=== PATIENT | female | born 1935 | race Caucasian/White ===

== ENCOUNTER 2019-04-05 11:40 | Inpatient (IN) | payer MEDICARE, OTHER ==
--- NOTE | 2019-04-04 21:45 | NUR ---
NURSE NOTES: Pt is sleeping on the bed and tolerated well with current BiPAP setting. Verified Pt's name, MR number, , unit number, blood type, and date with NAVIN Mojica. Educated Pt regarding side effect of blood transfusion but doesn't understand. Checked V/S BP: 150/101mmHg, HR: 115's, BT; 98.1F, SaO2 100% noted. Stared 2nd PRBC blood transfusion. Will continue to monitor any change of condition. Addendum: 04/06/19 at 0036 by ESA MAGDALENO RN RN Charting error; incorrect time and dated change to 04/05/19 @ 0673
[2019-04-05] VITALS (8 sets, daily range): BP systolic 93–150; BP diastolic 72–101
[~2019-04-05] VITALS: Ht 162.6 cm; Wt 81.6 kg
[2019-04-05 12:36] LABS: HEMATOCRIT 23.8 % (37.0-47.0); HEMOGLOBIN 7.1 G/DL (12.0-16.0); MEAN CORPUSCULAR VOLUME 74 FL (80-99); PLATELET COUNT 393 K/UL (150-450); RED BLOOD COUNT 3.24 M/UL (4.20-5.40); RED CELL DISTRIBUTION WIDTH 14.7 % (11.6-14.8); WHITE BLOOD COUNT 10.6 K/UL (4.8-10.8)
--- NOTE | 2019-04-05 12:36 | NUR ---
ED Nurse Note:pt. was BIBA from SNF with abnormal hemoglobin results, pt. is non-verbal, VSS, skin is dry and has bilateral hip redness also sore on left foot, blood and urine sent to labs given IV fluids
[2019-04-05 12:40] LABS: APPEARANCE,URINE SLIGHTLY CLOUDY; BILIRUBIN, URINE NEGATIVE (NEGATIVE); GLUCOSE, URINE (UA) NEGATIVE (NEGATIVE); KETONES,URINE NEGATIVE (NEGATIVE); LEUKOCYTE ESTERASE ,URINE 3+ (NEGATIVE); NITRITE,URINE NEGATIVE (NEGATIVE); PH,URINE 8 (4.5-8.0); PROTEIN,URINE 2+ (NEGATIVE); UROBILINOGEN,URINE 1 MG/DL (0.0-1.0)
[2019-04-05 12:42] LABS: COLOR,URINE YELLOW
[2019-04-05 12:45] LABS: ANION GAP 7 mmol/L (5-15); BLOOD UREA NITROGEN 29 mg/dL (7-18); CALCIUM 9.1 MG/DL (8.5-10.1); CARBON DIOXIDE 27 MMOL/L (21-32); CHLORIDE 108 MMOL/L (98-107); CREATININE 0.6 MG/DL (0.55-1.30); INR 1.1 (0.9-1.1); POTASSIUM 4.4 MMOL/L (3.5-5.1); SODIUM 142 MMOL/L (136-145)
[2019-04-05 12:50] LABS: ALANINE AMINOTRANSFERASE 52 U/L (12-78); ALBUMIN 2.3 G/DL (3.4-5.0); ALBUMIN/GLOBULIN RATIO 0.5 (1.0-2.7); ALKALINE PHOSPHATASE 85 U/L (46-116); ASPARTATE AMINO TRANSFERASE 48 U/L (15-37); BILIRUBIN,TOTAL 0.3 MG/DL (0.2-1.0)
[2019-04-05] MEDS ORDERED: Sodium Chloride 1,900 ML IVLG ONE (13:15)
[2019-04-05] MEDS ORDERED: cefTRIAXone 1 GM in NS 55 ML IVPB ONE (13:15)
--- NOTE | 2019-04-05 16:20 | NUR ---
ED Nurse Note:started blood transfusion ,pt. tolerating well
--- NOTE | 2019-04-05 16:29 | Emergency Room Report ---
History of Present Illness General Chief Complaint: Abnormal Labs Source: Patient, Medical Record Present Illness HPI 83-year-old female presents ED for evaluation. Brought in by EMS from senior care facility. Referred for abnormal labs. Hemoglobin 7.2. Patient nonverbal at baseline. No signs of distress. Unable to provide any additional history at this time. Tachycardic. Rhythm shows A. fib. No other aggravating relieving factors. No other associated symptoms Allergies: Coded Allergies: No Known Allergies (Unverified , 04/05/19) Patient History Past Medical History: GI bleed, dementia Past Surgical History: none Pertinent Family History: none Social History: Denies: smoking, alcohol use, drug use Now: No Immunizations: UTD Reviewed Nursing Documentation: PMH: Agreed; PSxH: Agreed Nursing Documentation-PMH Past Medical History: No History, Except For Hx Gastrointestinal Problems: Yes - GI hemorrhage, G-tube, dysphagia Hx Neurological Problems: Yes - Dementia Review of Systems All Other Systems: limited Physical Exam Vital Signs Date Time Temp Pulse Resp B/P (MAP) Pulse Ox O2 Delivery O2 Flow Rate FiO2 04/05/19 11:36 98.1 115 18 119/72 (88) 96 Nasal Cannula 2.0 Sp02 EP Interpretation: reviewed, normal General Appearance: other - nonverbal Head: normocephalic Eyes: bilateral eye normal inspection, bilateral eye PERRL ENT: normal ENT inspection Neck: normal inspection Respiratory: chest non-tender, lungs clear, normal breath sounds, speaking full sentences Cardiovascular #1: regular rate, rhythm, no edema Gastrointestinal: normal bowel sounds, non tender, soft, non-distended, no guarding, no rebound Rectal: black stool Genitourinary: no CVA tenderness Musculoskeletal: normal inspection Neurologic: other - nonverbal Psychiatric: other - nonverbal Skin: other - see nursing notes Lymphatic: normal inspection Medical Decision Making Diagnostic Impression: Primary Impression: Anemia Qualified Codes: D64.9 - Anemia, unspecified Additional Impressions: Afib Qualified Codes: I48.91 - Unspecified atrial fibrillation UTI (urinary tract infection) Qualified Codes: N39.0 - Urinary tract infection, site not specified Sepsis Qualified Codes: A41.9 - Sepsis, unspecified organism ER Course Hospital Course 83 yo F presents to ED with reported low hb. Differential diagnoses include: anemia requiring transfusion, microcytic anemia , macrocytic anemia, heavy blood loss Clinical course Patient placed on stretcher. After initial history and physical I ordered labs , EKG, CXR, IVFs Labs- hemoglobin/hematocrit 7.1/23.8. No leukocytosis. Hemoglobin/hematocrit stable, UA positive. Lactic 2.3 EKGA. fib with RVR CXR - no acute process Tachycardia resolved with IV fluids. Given antibiotics. Given 30 cc/kg fluid bolus. PRBCs ordered Diagnosis - anemia, UTI, sepsis, afib Admitted to telemetry in serious condition Labs Test 04/05/19 12:10 04/05/19 12:28 04/05/19 15:20 White Blood Count 10.6 K/UL (4.8-10.8) Red Blood Count 3.24 M/UL (4.20-5.40) Hemoglobin 7.1 G/DL (12.0-16.0) Hematocrit 23.8 % (37.0-47.0) Mean Corpuscular Volume 74 FL (80-99) Mean Corpuscular Hemoglobin 21.9 PG (27.0-31.0) Mean Corpuscular Hemoglobin Concent 29.8 G/DL (32.0-36.0) Red Cell Distribution Width 14.7 % (11.6-14.8) Platelet Count 393 K/UL (150-450) Mean Platelet Volume 6.6 FL (6.5-10.1) Neutrophils (%) (Auto) % (45.0-75.0) Lymphocytes (%) (Auto) % (20.0-45.0) Monocytes (%) (Auto) % (1.0-10.0) Eosinophils (%) (Auto) % (0.0-3.0) Basophils (%) (Auto) % (0.0-2.0) Differential Total Cells Counted 100 Neutrophils % (Manual) 78 % (45-75) Lymphocytes % (Manual) 13 % (20-45) Monocytes % (Manual) 8 % (1-10) Eosinophils % (Manual) 1 % (0-3) Basophils % (Manual) 0 % (0-2) Band Neutrophils 0 % (0-8) Platelet Estimate Adequate Platelet Morphology Normal Hypochromasia 2+ Anisocytosis 1+ Microcytosis 1+ Prothrombin Time 11.4 SEC (9.30-11.50) Prothromb Time International Ratio 1.1 (0.9-1.1) Activated Partial Thromboplast Time 20 SEC (23-33) Sodium Level 142 MMOL/L (136-145) Potassium Level 4.4 MMOL/L (3.5-5.1) Chloride Level 108 MMOL/L (98-107) Carbon Dioxide Level 27 MMOL/L (21-32) Anion Gap 7 mmol/L (5-15) Blood Urea Nitrogen 29 mg/dL (7-18) Creatinine 0.6 MG/DL (0.55-1.30) Estimat Glomerular Filtration Rate mL/min (>60) Glucose Level 127 MG/DL (74-106) Lactic Acid Level 2.30 mmol/L (0.4-2.0) Calcium Level 9.1 MG/DL (8.5-10.1) Total Bilirubin 0.3 MG/DL (0.2-1.0) Aspartate Amino Transf (AST/SGOT) 48 U/L (15-37) Alanine Aminotransferase (ALT/SGPT) 52 U/L (12-78) Alkaline Phosphatase 85 U/L (46-116) Total Protein 7.2 G/DL (6.4-8.2) Albumin 2.3 G/DL (3.4-5.0) Globulin 4.9 g/dL Albumin/Globulin Ratio 0.5 (1.0-2.7) Urine Color Yellow Urine Appearance Slightly cloudy Urine pH 8 (4.5-8.0) Urine Specific [place] 1.015 (1.005-1.035) Urine Protein 2+ (NEGATIVE) Urine Glucose (UA) Negative (NEGATIVE) Urine Ketones Negative (NEGATIVE) Urine Blood 5+ (NEGATIVE) Urine Nitrite Negative (NEGATIVE) Urine Bilirubin Negative (NEGATIVE) Urine Urobilinogen 1 MG/DL (0.0-1.0) Urine Leukocyte Esterase 3+ (NEGATIVE) Urine RBC 2-4 /HPF (0 - 2) Urine WBC 5-10 /HPF (0 - 2) Urine Squamous Epithelial Cells Moderate /LPF (NONE/OCC) Urine Amorphous Sediment Many /LPF (NONE) Urine Bacteria Few /HPF (NONE) EKG Diagnostic Results Rate: tachycardiac Rhythm: other - afib ST Segments: no acute changes ASA given to the pt in ED: No Rhythm Strip Diag. Results EP Interpretation: yes Rhythm: no PVC's, no ectopy Chest X-Ray Diagnostic Results Chest X-Ray Diagnostic Results : Chest X-Ray Ordered: Yes # of Views/Limited/Complete: 1 View Indication: Other EP Interpretation: Yes Interpretation: no consolidation, no effusion, no pneumothorax, other - cardiomegaly Impression: Other - cardiomegaly Electronically Signed by: Electronically signed by Eddie Friedman MD Last Vital Signs Date Time Temp Pulse Resp B/P (MAP) Pulse Ox O2 Delivery O2 Flow Rate FiO2 04/05/19 12:34 98.1 106 27 93/72 100 Nasal Cannula 2.0 Status: improved Disposition: ADMITTED INPATIENT Condition: Serious Referrals: Kennedy Martino MD (PCP) Eddie Friedman MD Apr 05, 2019 16:28
[2019-04-05] MEDS ORDERED: SYNTHROID75 MCG ORAL (16:49)
[2019-04-05] MEDS ORDERED: ACETAMINOP160 MG/5 M ORAL (16:49)
[2019-04-05] MEDS ORDERED: TIMOPTIC 0.25%1 EACH OP (16:49)
[2019-04-05] MEDS ORDERED: ATORVASTATIN CA20 MG ORAL (16:49)
[2019-04-05] MEDS ORDERED: MIRALAX17 G2 ORAL (16:49)
[2019-04-05] MEDS ORDERED: DIGOXIN250 MCG ORAL (16:49)
[2019-04-05] MEDS ORDERED: MILK OF MA400 MG/51 ORAL (16:49)
[2019-04-05] MEDS ORDERED: BRIMONIDINE 0.110 ML OP (16:49)
[2019-04-05] MEDS ORDERED: RANITIDINE15 MG/1 ML PO (16:49)
[2019-04-05] MEDS ORDERED: LOSARTAN POTAS100 MG ORAL (16:49)
--- NOTE | 2019-04-05 16:54 | NUR ---
ED Nurse Note:called respiratory to place pt. on bi-pap per MD order
[2019-04-05] MEDS ORDERED: Albuterol/Ipratropium 3ml neb HHN PRN (18:00)
--- NOTE | 2019-04-05 18:15 | NUR ---
ED Nurse Note:pt. was taken to SDU, report given to [place]na
--- NOTE | 2019-04-05 18:52 | NUR ---
RESPIRATORY NOTE: Received pt on bipap with current settings of 15/5 FIO2 28%. Pt currently on facial mask with foam tape around the face to prevent redness or breakdown. ABG pending. Bipap plugged into red outlet. Will continue to monitor pt's progress.
--- NOTE | 2019-04-05 18:57 | NUR ---
NURSE NOTES: received pt from ER, dx AFIB, hr 109, nonverbal, vital signs stable, no SOB, hg 7.1, 1ST unit of PRBC going now, skin warm and dry to touch.
--- NOTE | 2019-04-05 19:13 | NUR ---
HAND-OFF: Report given to RASTA HOLDEN.
--- NOTE | 2019-04-05 19:15 | NUR ---
NURSE NOTES: Given report from NAVIN Bentley. Pt admitted from ER. Received Pt is resting on the bed and obtunded. Able to response to pain stimuli. On Tele monitor with A-fib with HR: 115's. IV site intact and no sign of infiltration noted. On BiPAP setting with 12/5 FiO2 30% and SaO2 99-100% noted. No sign of pain by FLACC scale. Finished 1 RBC blood transfusion without adverse reaction. Checked V/S BP: 130/100, HR: 115, BT: 98.2F. Noted scratch friedman on Rt buttock area and rashes and scratch friedman on back area. Change position. Cleaned Pt and applied lotion and cream. Placed fall precaution. Will continue to care plan.
[2019-04-05] MEDS ORDERED: DIGOXIN250 MCG GT (19:51)
[2019-04-05] MEDS ORDERED: IPRAT-ALBUT 0.5-3 ML HHN (19:51)
[2019-04-05] MEDS ORDERED: LOSARTAN POTAS100 MG GT (19:51)
[2019-04-05] MEDS ORDERED: BRIMONIDINE TART5 ML RIGHT EYE (19:51)
[2019-04-05] MEDS ORDERED: ATORVASTATIN CA10 MG GT (19:51)
[2019-04-05] MEDS ORDERED: ACETAMINOP160 MG/5 M GT (19:51)
[2019-04-05] MEDS ORDERED: MILK OF MA400 MG/51 GT (19:52)
[2019-04-05] MEDS ORDERED: RANITIDINE15 MG/1 ML GT (19:52)
[2019-04-05] MEDS ORDERED: POLYETHYLENE GL17 GM ORAL (19:52)
[2019-04-05] MEDS ORDERED: TIMOPTIC 0.25%1 EACH RIGHT EYE (19:52)
[2019-04-05] MEDS ORDERED: SYNTHROID75 MCG GT (19:52)
--- NOTE | 2019-04-05 20:00 | NUR ---
NURSE NOTES: Left message Dr. Martino for admission order and awaiting call back.
--- NOTE | 2019-04-05 20:09 | Cardiology Progress Note ---
Assessment/Plan Assessment/Plan [id number] Objective Last 24 Hour Vital Signs Date Time Temp Pulse Resp B/P (MAP) Pulse Ox O2 Delivery O2 Flow Rate FiO2 04/05/19 18:53 98.2 109 20 144/86 (105) 98 04/05/19 18:51 114 27 98 Facial 28 04/05/19 18:35 97.4 101 26 132/82 100 Bi-pap 2.0 30 04/05/19 17:56 97.4 101 26 132/82 100 Bi-pap 30 04/05/19 17:20 105 29 100 Facial 28 04/05/19 17:19 105 29 100 Nasal Cannula 2.0 28 04/05/19 16:40 97.4 105 29 143/94 100 Nasal Cannula 2.0 04/05/19 12:34 98.1 106 27 93/72 100 Nasal Cannula 2.0 04/05/19 11:36 98.1 115 18 119/72 (88) 96 Nasal Cannula 2.0 Laboratory Tests Test 04/05/19 12:10 04/05/19 12:28 04/05/19 12:30 04/05/19 15:20 White Blood Count 10.6 K/UL (4.8-10.8) Red Blood Count 3.24 M/UL (4.20-5.40) L Hemoglobin 7.1 G/DL (12.0-16.0) L Hematocrit 23.8 % (37.0-47.0) L Mean Corpuscular Volume 74 FL (80-99) L Mean Corpuscular Hemoglobin 21.9 PG (27.0-31.0) L Mean Corpuscular Hemoglobin Concent 29.8 G/DL (32.0-36.0) L Red Cell Distribution Width 14.7 % (11.6-14.8) Platelet Count 393 K/UL (150-450) Mean Platelet Volume 6.6 FL (6.5-10.1) Neutrophils (%) (Auto) % (45.0-75.0) Lymphocytes (%) (Auto) % (20.0-45.0) Monocytes (%) (Auto) % (1.0-10.0) Eosinophils (%) (Auto) % (0.0-3.0) Basophils (%) (Auto) % (0.0-2.0) Differential Total Cells Counted 100 Neutrophils % (Manual) 78 % (45-75) H Lymphocytes % (Manual) 13 % (20-45) L Monocytes % (Manual) 8 % (1-10) Eosinophils % (Manual) 1 % (0-3) Basophils % (Manual) 0 % (0-2) Band Neutrophils 0 % (0-8) Platelet Estimate Adequate Platelet Morphology Normal Hypochromasia 2+ Anisocytosis 1+ Microcytosis 1+ Prothrombin Time 11.4 SEC (9.30-11.50) Prothromb Time International Ratio 1.1 (0.9-1.1) Activated Partial Thromboplast Time 20 SEC (23-33) L Sodium Level 142 MMOL/L (136-145) Potassium Level 4.4 MMOL/L (3.5-5.1) Chloride Level 108 MMOL/L (98-107) H Carbon Dioxide Level 27 MMOL/L (21-32) Anion Gap 7 mmol/L (5-15) Blood Urea Nitrogen 29 mg/dL (7-18) H Creatinine 0.6 MG/DL (0.55-1.30) Estimat Glomerular Filtration Rate mL/min (>60) Glucose Level 127 MG/DL (74-106) H Lactic Acid Level 2.30 mmol/L (0.4-2.0) H 2.20 mmol/L (0.66-2.22) Calcium Level 9.1 MG/DL (8.5-10.1) Total Bilirubin 0.3 MG/DL (0.2-1.0) Aspartate Amino Transf (AST/SGOT) 48 U/L (15-37) H Alanine Aminotransferase (ALT/SGPT) 52 U/L (12-78) Alkaline Phosphatase 85 U/L (46-116) Total Protein 7.2 G/DL (6.4-8.2) Albumin 2.3 G/DL (3.4-5.0) L Globulin 4.9 g/dL Albumin/Globulin Ratio 0.5 (1.0-2.7) L Urine Color Yellow Urine Appearance Slightly cloudy Urine pH 8 (4.5-8.0) Urine Specific [place] 1.015 (1.005-1.035) Urine Protein 2+ (NEGATIVE) H Urine Glucose (UA) Negative (NEGATIVE) Urine Ketones Negative (NEGATIVE) Urine Blood 5+ (NEGATIVE) H Urine Nitrite Negative (NEGATIVE) Urine Bilirubin Negative (NEGATIVE) Urine Urobilinogen 1 MG/DL (0.0-1.0) H Urine Leukocyte Esterase 3+ (NEGATIVE) H Urine RBC 2-4 /HPF (0 - 2) H Urine WBC 5-10 /HPF (0 - 2) H Urine Squamous Epithelial Cells Moderate /LPF (NONE/OCC) H Urine Amorphous Sediment Many /LPF (NONE) H Urine Bacteria Few /HPF (NONE) D-Dimer 3.86 mg/L FEU (0.00-0.49) H Lamont Felix MD Apr 05, 2019 20:09
--- NOTE | 2019-04-05 20:20 | NUR ---
NURSE NOTES: Dr. Felix visited and assessed PT. Will continue to monitor any change of condition.
[2019-04-05] MEDS ORDERED: Acetaminophen 650mg/20.3ml GT PRN (21:00)
[2019-04-05] MEDS: D5 1/2NS 1,000 ML IV SCH (21:45)
--- NOTE | 2019-04-05 21:45 | NUR ---
NURSE NOTES: Pt is sleeping on the bed and tolerated well with current BiPAP setting. Verified Pt's name, MR number, , unit number, blood type, and date with NAVIN Mojica. Educated Pt regarding side effect of blood transfusion but doesn't understand. Checked V/S BP: 150/101mmHg, HR: 115's, BT; 98.1F, SaO2 100% noted. Stared 2nd PRBC blood transfusion. Will continue to monitor any change of condition.
[2019-04-05] MEDS: dilTIAZem HCl 30mg tab GT SCH (21:49)
[2019-04-05] MEDS ORDERED: Zosyn 3.375gm q8h **Extended infusion IVPB SCH ×2 (22:00)
--- NOTE | 2019-04-05 22:00 | NUR ---
NURSE NOTES: On running with PRBC blood transfusion. Checked V/S; BP: 150/74, HR: 115, BT: 97.9F and SaO2 100%. No sign of adverse reaction of blood transfusion. Will continue to monitor any change of condition.
[2019-04-06] VITALS (7 sets, daily range): BP systolic 116–152; BP diastolic 65–86
--- NOTE | 2019-04-06 00:43 | NUR ---
NURSE NOTES: Finished blood transfusion without adverse reaction. Checked V/S BP: 119/73, HR: 100, BT: 97.8F, SaO2 100% noted.
[2019-04-06 04:54] LABS: BASOPHILS % (AUTO) 0.4 % (0.0-2.0); EOSINOPHILS % (AUTO) 0.7 % (0.0-3.0); HEMATOCRIT 29.6 % (37.0-47.0); HEMOGLOBIN 9.3 G/DL (12.0-16.0); LYMPHOCYTES % (AUTO) 11.9 % (20.0-45.0); MEAN CORPUSCULAR VOLUME 76 FL (80-99); MONOCYTES % (AUTO) 5.6 % (1.0-10.0); NEUTROPHILS % (AUTO) 81.4 % (45.0-75.0); PLATELET COUNT 398 K/UL (150-450); RED BLOOD COUNT 3.89 M/UL (4.20-5.40); WHITE BLOOD COUNT 10.7 K/UL (4.8-10.8)
[2019-04-06 05:17] LABS: ANION GAP 10 mmol/L (5-15); BLOOD UREA NITROGEN 24 mg/dL (7-18); CALCIUM 8.9 MG/DL (8.5-10.1); CARBON DIOXIDE 24 MMOL/L (21-32); CHLORIDE 111 MMOL/L (98-107); CREATININE 0.5 MG/DL (0.55-1.30); POTASSIUM 4.5 MMOL/L (3.5-5.1); SODIUM 145 MMOL/L (136-145)
[2019-04-06] MEDS: dilTIAZem HCl 30mg tab GT SCH ×3 (05:59→23:03)
[2019-04-06] MEDS: Zosyn 3.375gm q8h **Extended infusion IVPB SCH ×4 (06:00→14:39)
--- NOTE | 2019-04-06 07:15 | NUR ---
NURSE NOTES: RECEIVED PT WITH HOB ELEVATED 45 DEGREE ,OBTUNDED, NON-VERBAL. PT USING BIPAP TOLERATING WELL CURRENTS SETTINGS,SAT 100%.PT GTF ON HOLD PER M.D ORDERS,STRONG ODOR NOTED AND GREENISH AND BROWNISH DISCHARGE NOTED.CLEANSED WITH NS AND APPLIED DRY 4X4 GAUZE AND SECURED WITH PAPER TAPE. FULL BODY ASSESSMENT DONE.REPOSITIONED Q 2HRS TO PREVENT FURTHER SKIN BREAK DOWN.NO ACUTE DISTRESS NOTED AT THIS TIME. WILL CONT TO MONITOR.
--- NOTE | 2019-04-06 07:15 | NUR ---
RESPIRATORY NOTE: received pt on bipap with setting of 12/5 fio2 28%. no resp distress noted at this time. bilateral exp rhonch heard on auscultation. pt saturation WNL. foam tape in place with no visible redness around facial area. will cont to monitor
--- NOTE | 2019-04-06 07:40 | NUR ---
HAND-OFF: Report given to NAVIN Moran. Pt is resting on the bed and tolerated with current BIPAP setting. No sign of acute distress noted.
--- NOTE | 2019-04-06 08:34 | Consultation ---
Consult Note Assessment/Plan DICT # [id number] Lito Jc MD Apr 06, 2019 08:34
[2019-04-06] MEDS ORDERED: Heparin 5000 units/ml inj SUBQ SCH (09:00)
[2019-04-06] MEDS: Brimonidine 0.2% Opth Sol RIGHT EYE SCH ×3 (09:56→18:21)
[2019-04-06] MEDS: Timoptic 0.25% Op Soln 2.5ml RIGHT EYE SCH ×2 (09:56→18:21)
--- NOTE | 2019-04-06 10:22 | Cardiology Progress Note ---
Assessment/Plan Assessment/Plan afib perm anemia uti contracture dementia cardizem for hr control seem fien is not on bipap now trop neg ekg not changed s/p prbc tx not on anticoagualtion at this time stool ob pulm fu Subjective ROS Limited/Unobtainable: Yes Objective Last 24 Hour Vital Signs Date Time Temp Pulse Resp B/P (MAP) Pulse Ox O2 Delivery O2 Flow Rate FiO2 04/06/19 08:43 2 Nasal Cannula 2.0 28 04/06/19 08:00 97.9 85 25 129/77 (94) 100 04/06/19 08:00 Bi-pap 04/06/19 07:13 80 26 100 Facial 28 04/06/19 05:59 95 131/73 04/06/19 04:58 10 28 100 Facial 28 04/06/19 04:00 Bi-pap 04/06/19 04:00 97.9 102 18 119/65 (83) 100 04/06/19 04:00 30 04/06/19 04:00 101 04/06/19 02:39 106 24 100 Facial 28 04/06/19 00:43 97.8 100 20 119/73 (88) 100 04/06/19 00:38 105 26 100 Facial 28 04/06/19 00:00 Bi-pap 04/06/19 00:00 107 04/06/19 00:00 30 04/06/19 00:00 98.2 102 18 152/86 (108) 100 04/05/19 22:43 107 31 100 Facial 28 04/05/19 22:00 97.9 115 20 150/74 (99) 100 04/05/19 21:49 115 152/101 04/05/19 21:45 98.1 115 20 150/101 (117) 100 04/05/19 21:30 28 04/05/19 20:30 109 19 100 Facial 28 04/05/19 20:00 Bi-pap 04/05/19 20:00 30 04/05/19 20:00 98.2 117 20 141/95 (110) 100 04/05/19 20:00 Bi-pap 04/05/19 20:00 115 04/05/19 19:15 98.2 115 20 130/100 (110) 100 04/05/19 18:53 98.2 109 20 144/86 (105) 98 04/05/19 18:51 114 27 98 Facial 28 04/05/19 18:35 97.4 101 26 132/82 100 Bi-pap 2.0 30 04/05/19 17:56 97.4 101 26 132/82 100 Bi-pap 30 04/05/19 17:20 105 29 100 Facial 28 04/05/19 17:19 105 29 100 Nasal Cannula 2.0 28 04/05/19 16:40 97.4 105 29 143/94 100 Nasal Cannula 2.0 04/05/19 12:34 98.1 106 27 93/72 100 Nasal Cannula 2.0 04/05/19 11:36 98.1 115 18 119/72 (88) 96 Nasal Cannula 2.0 General Appearance: no apparent distress Cardiovascular: irregularly irregular Respiratory/Chest: lungs clear Abdomen: normal bowel sounds, non tender, soft Extremities: no swelling, other - sever contractures Intake and Output 04/05/19 04/06/19 19:00 07:00 Intake Total 973.5 ml Output Total 1 ml Balance 972.5 ml Intake IV Total 423.5 ml Blood Product 550 ml Output Urine Total 1 ml # Voids 1 Laboratory Tests Test 04/05/19 12:10 04/05/19 12:28 04/05/19 12:30 04/05/19 15:20 White Blood Count 10.6 K/UL (4.8-10.8) Red Blood Count 3.24 M/UL (4.20-5.40) L Hemoglobin 7.1 G/DL (12.0-16.0) L Hematocrit 23.8 % (37.0-47.0) L Mean Corpuscular Volume 74 FL (80-99) L Mean Corpuscular Hemoglobin 21.9 PG (27.0-31.0) L Mean Corpuscular Hemoglobin Concent 29.8 G/DL (32.0-36.0) L Red Cell Distribution Width 14.7 % (11.6-14.8) Platelet Count 393 K/UL (150-450) Mean Platelet Volume 6.6 FL (6.5-10.1) Neutrophils (%) (Auto) % (45.0-75.0) Lymphocytes (%) (Auto) % (20.0-45.0) Monocytes (%) (Auto) % (1.0-10.0) Eosinophils (%) (Auto) % (0.0-3.0) Basophils (%) (Auto) % (0.0-2.0) Differential Total Cells Counted 100 Neutrophils % (Manual) 78 % (45-75) H Lymphocytes % (Manual) 13 % (20-45) L Monocytes % (Manual) 8 % (1-10) Eosinophils % (Manual) 1 % (0-3) Basophils % (Manual) 0 % (0-2) Band Neutrophils 0 % (0-8) Platelet Estimate Adequate Platelet Morphology Normal Hypochromasia 2+ Anisocytosis 1+ Microcytosis 1+ Prothrombin Time 11.4 SEC (9.30-11.50) Prothromb Time International Ratio 1.1 (0.9-1.1) Activated Partial Thromboplast Time 20 SEC (23-33) L Sodium Level 142 MMOL/L (136-145) Potassium Level 4.4 MMOL/L (3.5-5.1) Chloride Level 108 MMOL/L (98-107) H Carbon Dioxide Level 27 MMOL/L (21-32) Anion Gap 7 mmol/L (5-15) Blood Urea Nitrogen 29 mg/dL (7-18) H Creatinine 0.6 MG/DL (0.55-1.30) Estimat Glomerular Filtration Rate mL/min (>60) Glucose Level 127 MG/DL (74-106) H Lactic Acid Level 2.30 mmol/L (0.4-2.0) H 2.20 mmol/L (0.66-2.22) Calcium Level 9.1 MG/DL (8.5-10.1) Total Bilirubin 0.3 MG/DL (0.2-1.0) Aspartate Amino Transf (AST/SGOT) 48 U/L (15-37) H Alanine Aminotransferase (ALT/SGPT) 52 U/L (12-78) Alkaline Phosphatase 85 U/L (46-116) Total Protein 7.2 G/DL (6.4-8.2) Albumin 2.3 G/DL (3.4-5.0) L Globulin 4.9 g/dL Albumin/Globulin Ratio 0.5 (1.0-2.7) L Urine Color Yellow Urine Appearance Slightly cloudy Urine pH 8 (4.5-8.0) Urine Specific [place] 1.015 (1.005-1.035) Urine Protein 2+ (NEGATIVE) H Urine Glucose (UA) Negative (NEGATIVE) Urine Ketones Negative (NEGATIVE) Urine Blood 5+ (NEGATIVE) H Urine Nitrite Negative (NEGATIVE) Urine Bilirubin Negative (NEGATIVE) Urine Urobilinogen 1 MG/DL (0.0-1.0) H Urine Leukocyte Esterase 3+ (NEGATIVE) H Urine RBC 2-4 /HPF (0 - 2) H Urine WBC 5-10 /HPF (0 - 2) H Urine Squamous Epithelial Cells Moderate /LPF (NONE/OCC) H Urine Amorphous Sediment Many /LPF (NONE) H Urine Bacteria Few /HPF (NONE) D-Dimer 3.86 mg/L FEU (0.00-0.49) H Test 04/05/19 19:05 04/06/19 04:00 Arterial Blood pH 7.475 (7.350-7.450) Arterial Blood Partial Pressure CO2 33.3 mmHg (35.0-45.0) L Arterial Blood Partial Pressure O2 106.3 mmHg (75.0-100.0) H Arterial Blood HCO3 24.0 mmol/L (22.0-26.0) Arterial Blood Oxygen Saturation 97.6 % (95-100) Arterial Blood Base Excess 0.6 (-2-2) Mumtaz Test Positive White Blood Count 10.7 K/UL (4.8-10.8) Red Blood Count 3.89 M/UL (4.20-5.40) L Hemoglobin 9.3 G/DL (12.0-16.0) #L Hematocrit 29.6 % (37.0-47.0) L Mean Corpuscular Volume 76 FL (80-99) L Mean Corpuscular Hemoglobin 24.0 PG (27.0-31.0) L Mean Corpuscular Hemoglobin Concent 31.6 G/DL (32.0-36.0) L Red Cell Distribution Width 15.0 % (11.6-14.8) H Platelet Count 398 K/UL (150-450) Mean Platelet Volume 7.4 FL (6.5-10.1) Neutrophils (%) (Auto) 81.4 % (45.0-75.0) H Lymphocytes (%) (Auto) 11.9 % (20.0-45.0) L Monocytes (%) (Auto) 5.6 % (1.0-10.0) Eosinophils (%) (Auto) 0.7 % (0.0-3.0) Basophils (%) (Auto) 0.4 % (0.0-2.0) Sodium Level 145 MMOL/L (136-145) Potassium Level 4.5 MMOL/L (3.5-5.1) Chloride Level 111 MMOL/L (98-107) H Carbon Dioxide Level 24 MMOL/L (21-32) Anion Gap 10 mmol/L (5-15) Blood Urea Nitrogen 24 mg/dL (7-18) H Creatinine 0.5 MG/DL (0.55-1.30) L Estimat Glomerular Filtration Rate mL/min (>60) Glucose Level 108 MG/DL (74-106) H Calcium Level 8.9 MG/DL (8.5-10.1) Troponin I 0.000 ng/mL (0.000-0.056) Digoxin Level 0.8 NG/ML (0.9-2.0) L Lamont Felix MD Apr 06, 2019 10:22
--- NOTE | 2019-04-06 10:44 | Diagnostic Imaging Report ---
Indication: Dyspnea Comparison: None A single view chest radiograph was obtained. Findings: No definite infiltrate or pulmonary vascular congestion identified. The heart is enlarged. The aorta is mildly enlarged consistent with atherosclerotic vascular disease. 2 level thoracic vertebroplasty/kyphoplasty has been performed in the midthoracic and lower thoracic levels. The bones are osteopenic. Impression: No acute disease
--- NOTE | 2019-04-06 10:58 | NUR ---
CASE MANAGEMENT: INITIAL REVIEW 83 YO F NANNETTE FROM [facility] CC: LOW HGB PMHx: DEMENTIA. GTUBE. SI:RAPID A FIB. ANEMIA. T 98.1 HR 115 RR 18 B/P 119/72 SATS 96% ON 2L/NC HGB 7.1 HCT 23.8 CL 108 BUN 29 GLU 127 AST 48 ABGs PH 7.475 PCO2 33.3 PO2 106.3 IS: NS BOLUS X2 CEFTRIAXONE IV X1 CXR (-) PATIENT ADMITTED TO SDU 04/05/2019 @ 1422 DCP: PATIENT TO BE DISCHARGED TO SNF ONCE MEDICALLY CLEARED PLAN OF CARE: TRANSFUSE 2 UNITS CARDIO EVAL Addendum: 04/06/19 at 1756 by Lorelei Noble CM INTERQUAL MET
--- NOTE | 2019-04-06 11:10 | Cardiology Report ---
APPROVED REPORT EXAM: Two-dimensional and M-mode echocardiogram with Doppler and color Doppler. M-Mode DIMENSIONS IVSd1.0 (0.7-1.1cm)Left Atrium (MM)5.5 (1.6-4.0cm) LVDd4.6 (3.5-5.6cm)Aortic Root3.2 (2.0-3.7cm) PWd1.0 (0.7-1.1cm)Aortic Cusp Exc.1.8 (1.5-2.0cm) IVSs1.5 cm LVDs3.1 (2.5-4.0cm) PWs1.5 cm Technically difficult study due to poor acoustical windows . Normal left ventricular chamber size, systolic function and wall motion to extent visualized. Left ventricular ejection fraction estimated to be 55-60%. No evidence of left ventricular hypertrophy. No pericardial effusion. Moderate bi-atrial enlargement. Right ventriuclar size at upper limits of normal. Aortic valve calcification with normal cusp excursion . Mildly thickened mitral valve leaflets with normal excursion. Mild mitral annulus and aortic root calcification. Pulmonic valve not well visualized. IVC dilated at 2.5 cm with slightly physiologic collapse suggestive of increased RA pressure. A color flow and spectral Doppler study was performed and revealed: Trace aortic insufficiency . Mitral inflow non diagnostic due to presence of atrial fibrillation Mild to moderate mitral regurgitation. Moderate tricuspid regurgitation. Tricuspid systolic velocities suggests peak right ventricular systolic pressure of 58mmHg,consistent with moderate pulmonary HTN.
--- NOTE | 2019-04-06 11:18 | Cardiology Report ---
APPROVED REPORT EKG Measurement Heart [id number] Atrial fibrillation with rapid ventricular response Anterior infarct, age undetermined Abnormal ECG
[2019-04-06] MEDS: D5 1/2NS 1,000 ML IV SCH (12:32)
--- NOTE | 2019-04-06 13:55 | Consultation ---
Consult Note Assessment/Plan dictated [id number] Kennedy Martino MD Apr 06, 2019 13:55
--- NOTE | 2019-04-06 13:57 | General Progress Note ---
Assessment/Plan Problem List: (1) Anemia ICD Codes: D64.9 - Anemia, unspecified SNOMED: 153245001 Qualifiers: Qualified Codes: D64.9 - Anemia, unspecified (2) Afib ICD Codes: I48.91 - Unspecified atrial fibrillation SNOMED: 56267694 Qualifiers: Qualified Codes: I48.91 - Unspecified atrial fibrillation (3) Sepsis ICD Codes: A41.9 - Sepsis, unspecified organism SNOMED: 51437039 Qualifiers: Qualified Codes: A41.9 - Sepsis, unspecified organism (4) UTI (urinary tract infection) ICD Codes: N39.0 - Urinary tract infection, site not specified SNOMED: 05166001 Qualifiers: Qualified Codes: N39.0 - Urinary tract infection, site not specified Assessment/Plan: abxs rate control Discussed with RN and family Follow labs wound care Subjective Allergies: Coded Allergies: No Known Allergies (Unverified , 04/05/19) Subjective In NAD Objective Last 24 Hour Vital Signs Date Time Temp Pulse Resp B/P (MAP) Pulse Ox O2 Delivery O2 Flow Rate FiO2 04/06/19 13:02 89 04/06/19 12:00 2.0 04/06/19 08:43 2 Nasal Cannula 2.0 28 04/06/19 08:00 83 04/06/19 08:00 97.9 85 25 129/77 (94) 100 04/06/19 08:00 Bi-pap 04/06/19 08:00 30 04/06/19 07:13 80 26 100 Facial 28 04/06/19 05:59 95 131/73 04/06/19 04:58 10 28 100 Facial 28 04/06/19 04:00 Bi-pap 04/06/19 04:00 97.9 102 18 119/65 (83) 100 04/06/19 04:00 30 04/06/19 04:00 101 04/06/19 02:39 106 24 100 Facial 28 04/06/19 00:43 97.8 100 20 119/73 (88) 100 04/06/19 00:38 105 26 100 Facial 28 04/06/19 00:00 Bi-pap 04/06/19 00:00 107 04/06/19 00:00 30 04/06/19 00:00 98.2 102 18 152/86 (108) 100 04/05/19 22:43 107 31 100 Facial 28 04/05/19 22:00 97.9 115 20 150/74 (99) 100 04/05/19 21:49 115 152/101 04/05/19 21:45 98.1 115 20 150/101 (117) 100 04/05/19 21:30 28 04/05/19 20:30 109 19 100 Facial 28 04/05/19 20:00 Bi-pap 04/05/19 20:00 30 04/05/19 20:00 98.2 117 20 141/95 (110) 100 04/05/19 20:00 Bi-pap 04/05/19 20:00 115 04/05/19 19:15 98.2 115 20 130/100 (110) 100 04/05/19 18:53 98.2 109 20 144/86 (105) 98 04/05/19 18:51 114 27 98 Facial 28 04/05/19 18:35 97.4 101 26 132/82 100 Bi-pap 2.0 30 04/05/19 17:56 97.4 101 132/82 100 Bi-pap 30 04/05/19 17:20 105 29 100 Facial 28 04/05/19 17:19 105 29 100 Nasal Cannula 2.0 28 04/05/19 16:40 97.4 105 29 143/94 100 Nasal Cannula 2.0 Intake and Output 04/05/19 04/06/19 19:00 07:00 Intake Total 973.5 ml Output Total 1 ml Balance 972.5 ml Intake IV Total 423.5 ml Blood Product 550 ml Output Urine Total 1 ml # Voids 1 Laboratory Tests 04/05/19 15:20: Lactic Acid Level 2.20 04/05/19 19:05: Arterial Blood pH 7.475H, Arterial Blood Partial Pressure CO2 33.3L, Arterial Blood Partial Pressure O2 106.3H, Arterial Blood HCO3 24.0, Arterial Blood Oxygen Saturation 97.6, Arterial Blood Base Excess 0.6, Mumtaz Test Positive 04/06/19 04:00: White Blood Count 10.7, Red Blood Count 3.89L, Hemoglobin 9.3#L, Hematocrit 29.6L, Mean Corpuscular Volume 76L, Mean Corpuscular Hemoglobin 24.0L, Mean Corpuscular Hemoglobin Concent 31.6L, Red Cell Distribution Width 15.0H, Platelet Count 398, Mean Platelet Volume 7.4, Neutrophils (%) (Auto) 81.4H, Lymphocytes (%) (Auto) 11.9L, Monocytes (%) (Auto) 5.6, Eosinophils (%) (Auto) 0.7, Basophils (%) (Auto) 0.4, Sodium Level 145, Potassium Level 4.5, Chloride Level 111H, Carbon Dioxide Level 24, Anion Gap 10, Blood Urea Nitrogen 24H, Creatinine 0.5L, Estimat Glomerular Filtration Rate , Glucose Level 108H, Calcium Level 8.9, Troponin I 0.000, Digoxin Level 0.8L Height (Feet): 5 Height (Inches): 4.00 Weight (Pounds): 158 Cardiovascular: normal rate, irregularly irregular Respiratory/Chest: lungs clear Edema: no edema noted Generalized Kennedy Martino MD Apr 06, 2019 13:57
--- NOTE | 2019-04-06 14:48 | NUR ---
NURSE NOTES:WOUND CARE NOTES:Pt presented on admission with contractures and multiple pressure injuries. Non-blanchabe erythema with fluctuance L heel and plantar aspect of L heel. Non-blanching erythema with fluctuance R heel. Non-blanching erythema without fluctuance or induration Lateral R malleolus. Non-blanching erythema without induration or fluctuance Lateral L malleolus. Non-blanching erythema without fluctuance or induration distal/lateral L foot. Necrotic wound medial/lateral L foot . Base of wound is fluctuant, oozing small amt purulent exudate. Borders and periwound are erythematous. Non-blanching erythema without induration or fluctuance Sacrum. No other skin concerns noted. Tx.Plan: Apply Moisture Barrier paste to sacrum. Cover with Optifoam drsg. Change every 3 days and prn. Apply Cavilon Skin Barrier to R lateral malleolus ,R heel and R hallux. Cover each site with Optifoam drsg. Change every 7 days and prn. Apply Cavilon Skin Barrier to L lateral malleolus , L heel ,L hallux .Cover each site with Optifoam drsg. Change every 7 days and prn. Clean Wound lateral/medial L foot with saline. Apply Therahoney. Cover with Optifoam drsg. Change Daily and prn. Reposition at least every 2hours or as tolerated. APM/NIKOLAI mattress overlay. Off-load heels with pillow.
--- NOTE | 2019-04-06 15:23 | NUR ---
RD ASSESSMENT & RECOMMENDATIONS SEE CARE ACTIVITY FOR COMPLETE ASSESSMENT DAILY ESTIMATED NEEDS: Needs based on Pulmonary, wound/ 69kg 25-30 kcals/kg 7698-6471 total kcals 1.25-1.5 g protein/kg 86-103 g total protein 25-30 mL/kg 6939-1428 total fluid mLs NUTRITION DIAGNOSIS: * Swallowing difficulty R/T dysphagia as evidenced by PEG dep, NPO at this time * Increased kcal/prot needs R/T wound healing as evidenced by pt admitted w/ lt foot wound, pending eval. CURRENT TF:NPO ENTERAL NUTRITION RECOMMENDATIONS: Osmolite 1.5 @ 55ml/hr x 24 hrs + Prosource 1pkt QD to provide 1320ml, 1980kcal, 83g + 11g prot, 1005ml free water * As medically appropriate, initiate TF * Rec to continue Osmolite 1.5 (TF @ SNF) * Initiate Osmoltie 1.5 @ 35ml/hr x 6 hrs, advance 10ml q 4-6 hrs as tolerated to goal rate. * Add Prosource 1pkt daily to meet protein needs * HOB over 30 degrees/ water flush per MD ADDITIONAL RECOMMENDATIONS: * Calibrated bedscale wt for accurate CBW (per SNF record, [id number] on 03/15/19, ht=68") * Resume TF as medically appropriate * Wound healing: Add Vit C 250mg QD + Toni 1pkt BID * Monitor lytes, replete as needed
[2019-04-06] MEDS ORDERED: Isovue-370 150ml vial INJ PRN (15:30)
--- NOTE | 2019-04-06 16:56 | Consultation ---
DATE OF CONSULTATION: 04/06/2019 PULMONARY CONSULTATION CONSULTING PHYSICIAN: Lito Jc M.D. REFERRING PHYSICIAN: Kennedy Martino M.D. REASON FOR CONSULTATION: Respiratory failure. HISTORY OF PRESENT ILLNESS: The patient is an 83-year-old female with a history of dementia, nonverbal at baseline, recent admission to [facility] for GI bleed, paroxysmal atrial fibrillation, not on anticoagulation, hypothyroidism, hypertension, hyperlipidemia who presented to the emergency department yesterday from a senior living facility with a hemoglobin of 7.2. She was recently at [facility] for the same. The patient was in respiratory distress in the ER, went into atrial fibrillation with RVR, and was started on BiPAP by the ER attending. Tachycardia and rapid ventricular response resolved with IV fluids. The patient was started on broad-spectrum antimicrobials. Chest x-ray is not loaded on PACS, but per the ER doctor's note was unrevealing. The patient is now in a rate controlled atrial fibrillation on BiPAP. No leukocytosis. Hemoglobin responded well to transfusion. ABG 7.475, 33, 106, 24, 97. D-dimer 3.86. Lactic acidosis has resolved. Urinalysis is significant for UTI and cultures are pending. No history is obtainable from the patient. PAST MEDICAL HISTORY: 1. Dementia. 2. Dysphagia, status post G-tube. 3. Atrial fibrillation. 4. Hypertension. 5. Hyperlipidemia. 6. History of anemia and GI bleed. ALLERGIES: No known drug allergies. MEDICATIONS: Prior to admission medications reviewed. Current medications reviewed. SOCIAL HISTORY: [facility] resident, otherwise unknown. FAMILY HISTORY: Noncontributory. REVIEW OF SYSTEMS: Unobtainable. PHYSICAL EXAMINATION: VITAL SIGNS: Temperature 97.9, pulse 80, blood pressure 131/73, respiratory rate 26, saturating 100% on BiPAP. GENERAL: Elderly nonverbal demented patient. Follows simple commands like eye tracking. HEENT: Normocephalic, atraumatic. BiPAP is on. NECK: Supple without lymphadenopathy. CHEST: Scattered coarse rhonchi. No rales. HEART: Irregularly irregular. ABDOMEN: Soft, nontender, nondistended. EXTREMITIES: No cyanosis, clubbing, edema. LABORATORY DATA: White count 10.7, hemoglobin 9.3, platelet count 398. ABG 7.475/33/106/24/97. Sodium 145, potassium 4.5, chloride 111, bicarb 24, BUN 24, creatinine 0.5, glucose 108, calcium 8.9. LFTs normal. Lactic acid 2.2. Troponin 0.000. INR 1.1. D-dimer 3.86. Urinalysis, 3+ leukocyte esterase. Digoxin level 0.8. Chest x-ray per ER doctor is negative. ASSESSMENT: The patient is an 83-year-old female, residential patient with dementia, nonverbal at baseline, dysphagia status post G-tube, history of GI bleed, hypertension, hyperlipidemia, atrial fibrillation brought in for acute on chronic anemia and placed on BiPAP for respiratory failure and concern for possible sepsis. PROBLEM LIST: 1. Acute hypoxemic respiratory failure, on BiPAP. 2. Systemic inflammatory response syndrome. 3. Atrial fibrillation initially with RVR, now rate controlled. 4. Acute on chronic anemia. 5. History of GI bleed. 6. Dysphagia, status post G-tube. 7. Dementia. 8. Hypertension. 9. Hyperlipidemia. 10. Hypothyroidism. TREATMENT PLAN: 1. We will discontinue BiPAP now and monitor gas exchange. 2. We will keep BiPAP on p.r.n. and at bedtime. 3. Duplex is currently pending, if negative we will check a stat CT angio of the chest. 4. Optimize pulmonary hygiene/mobilize as tolerated. 5. PRN DuoNebs. 6. Continue antibiotics for now, the patient is on Zosyn (day #2), low threshold to taper unless any sign of an infectious process. 7. Follow up Cardiology recommendations. 8. Monitor volumes and renal function, continue maintenance IV fluid. 9. Hold tube feed until the patient's respiratory status is stable. 10. DVT prophylaxis, heparin subcutaneous. 11. Monitor hemoglobin and hematocrit, transfuse as needed. 12. The patient is DNAR. Dr. Martino, thank you for allowing me to assist in the care of your patient. If I maybe of any assistance in the future, please do not hesitate to ask. Lito Jc M.D. DR: KYE JOB#: [id number] CC:
--- NOTE | 2019-04-06 18:15 | History and Physical Report ---
DATE OF ADMISSION: 04/05/2019 CHIEF COMPLAINT: The patient was found to be severely anemic. HISTORY OF PRESENT ILLNESS: This is an 83-year-old [place]ian female, who resides in [facility]. The patient is nonverbal, is bed ridden, has contractures, and she was found to be very anemic with a hemoglobin of 7.2. She was sent to the emergency room for further evaluation and treatment. In the emergency room, she was admitted, status post transfusion. Also she was found to have atrial fibrillation, rapid ventricular response. PAST MEDICAL HISTORY: The patient has a history of G tube. She has had coffee-ground fluids coming out from the G-tube in the past. 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 She has history of atrial fibrillation. She is status post subdural hematoma, history of dementia. MEDICATIONS: Reviewed in the [facility]. SOCIAL HISTORY: No history of smoking or alcohol abuse. The patient lives in a alf as mentioned. ALLERGIES: No known drug allergies. REVIEW OF SYSTEMS: Unobtainable. PHYSICAL EXAMINATION: GENERAL: The patient is an elderly female, in no acute distress. VITAL SIGNS: Blood pressure is 129/77, pulse 85, temperature 97.9, respiratory rate is 25. HEENT: Pale conjunctivae. Anicteric sclerae. NECK: Supple. LUNGS: Coarse breath sounds. HEART: S1, S2. Irregularly irregular. ABDOMEN: Soft, nontender. The patient has a G-tube in upper abdomen. EXTREMITIES: No cyanosis or edema. The patient has contractures in both lower extremities. LABORATORY FINDINGS: The CBC shows a WBC of 10,700, hematocrit is 29.6, hemoglobin 9.3, and platelets 398,000. The chemistry panel shows a serum sodium 145, potassium 4.5, chloride 111, CO2 24, BUN is 24, creatinine 0.5. Blood sugar is 108, calcium is 8.9. UA shows 5 to 10 wbc's per high-power field and few bacteria. ASSESSMENT: This is an 83-year-old [place]istanian female, who was admitted with severe anemia. She had also atrial fibrillation, rapid ventricular response. She was seen by Dr. Felix, in Cardiology consultation and was given Cardizem and heart rate is better now. She likely has also UTI and also she has a wound on her foot, which may be infected. PLAN: The patient will be on IV antibiotics. I will restart the patient on tube feeding. She got some IV fluids overnight because she was NPO. She was transfused as mentioned, to repeat hemoglobin and hematocrit and transfuse further if needed. Case was discussed with the patient's RN and also with the family. Kennedy Martino M.D. DR: WON JOB#: [id number] CC:
--- NOTE | 2019-04-06 19:30 | NUR ---
NURSE NOTES: Received patient from NAVIN Moran. patient is resting in bed, nonverbal, no s/sx of pain noted at this time. patient is on 2 L O2 via NC. no s/sx of respiratory distress noted at this time. patient is currently NPO, G-tube site is patent and intact, clamped. Purewick is patent and intact, draining well. skin alterations noted. IV site is patent and intact, running fluids at prescribed rate. bed in lowest position and locked, siderails up X3, call light within reach. will continue to monitor.
--- NOTE | 2019-04-06 19:40 | NUR ---
HAND-OFF: Report given to .SAMMY HOLDEN.
--- NOTE | 2019-04-06 20:30 | NUR ---
TRANSFER TO FLOOR: Patient transferred to 2E. Report given to NAVIN Chang. Belongings and medications transferred with patient. Family and or S/O informed of transfer.
--- NOTE | 2019-04-06 20:31 | NUR ---
NURSE NOTES: Received report on pt from NAVIN Garcia. Pt is sleeping and non verbal. Belongings list verified. IV site intact and patent. Bed locked in lowest position, call light within reach, bed alarm on. Will continue with plan of care.
--- NOTE | 2019-04-06 20:54 | NUR ---
NURSE NOTES: Notified Dr. Felix of pt digoxin level of 0.8
[2019-04-06] MEDS ORDERED: Acetaminophen 650mg/20.3ml GT PRN (21:00)
[2019-04-06] MEDS: Heparin 5000 units/ml inj SUBQ SCH (21:00)
[2019-04-06] MEDS: Piperacillin/Tazobactam 3.375 GM in NS 110 ML IVPB SCH (22:00)
[2019-04-06] MEDS ORDERED: D5 1/2NS 1,000 ML IV SCH (22:00)
[2019-04-06] MEDS ORDERED: Albuterol/Ipratropium 3ml neb HHN PRN (22:00)
[2019-04-07] VITALS: BP 121/84
[2019-04-07 04:00] VITALS: BP 125/76
--- NOTE | 2019-04-07 04:00 | Consultation ---
DATE OF CONSULTATION: 04/06/2019 CARDIOLOGY CONSULTATION CONSULTING PHYSICIAN: Lamont Felix M.D. REFERRING PHYSICIAN: Kennedy Martino M.D. REASON FOR REFERRAL: Atrial fibrillation. HISTORY OF PRESENT ILLNESS: This is an elderly female, who is unfortunately unable to provide any meaningful history whatsoever. She is a resident of [facility]. When I saw her, she was on BiPAP and she was not really communicative or able to provide any meaningful history. As I understand from review of the patient's chart, from the admission in the emergency room, she was brought in from the convalescent facility because of abnormal lab values including hemoglobin 7.2, but did not found to be with any kind of stress. She was noted to be tachycardiac with atrial fibrillation. This consultation is requested subsequently by Dr. Martino. PAST MEDICAL HISTORY: The patient's past medical history as documented in the patient's chart is positive for history of GI bleeding, history of gastrostomy tube placement, dysphagia, hypothyroidism, chronic atrial fibrillation, glaucoma, gastroesophageal reflux disease, urinary tract infection, fracture of the sternum and nonhealing wounds, dementia, functional intestinal disorder "as listed on the patient's chart." ALLERGIES: No known drug allergies. SOCIAL HISTORY: She does not smoke or drink at the present time. REVIEW OF SYSTEMS: Unable to obtain. PHYSICAL EXAMINATION: VITAL SIGNS: At the time of my visit, her blood pressure was 141/95, temperature of 98.2, heart rate is 115 to 117, on BiPAP, 100% saturation documented. GENERAL: Shows to be elderly female, contracted, noncommunicative on a BiPAP therapy. EYES: Intermittently open. NECK: Supple. LUNGS: Appear to be clear to auscultation anteriorly. CARDIAC: Irregularly irregular. Tachycardic. No heaves or thrills noted. ABDOMEN: A G-tube in place. EXTREMITIES: Contracted. No significant edema distally and no significant edema in the dependent portions of the leg and buttock area at the time of my evaluation. NEUROLOGICAL: Not communicative or responsive. LABORATORY VALUES: White count of 10.6, hemoglobin 7.1, and platelet count of 393,000 with blood gases, pH of 7.47, pCO2 of 33, pO2 of 106, and a bicarbonate of 24. Her sodium is 142, potassium 4.4, chloride 108, bicarbonate 27, BUN of 29, creatinine 0.6. Glucose of 127. AST and ALT of 48 and 52 respectively. Alkaline phosphatase was 85. Total protein is 7.2 with albumin of 2.3. INR was 1.2 and a PTT of 20. Her urinalysis shows 5 to 10 wbc's, 2 to 4 rbc's, 3+ leukocyte esterase. She had had imaging performed in the emergency room, which I am unable to pull down to review, but the interpretation by the emergency physician showed "no acute processes." Her electrocardiogram performed in the emergency room showed atrial fibrillation, ventricular response relatively controlled although slightly high at 105. Some nonspecific T-wave abnormalities are noted. ASSESSMENT AND PLAN: 1. Atrial fibrillation, permanent. 2. Anemia. 3. G-tube dependence. 4. Advanced dementia. 5. Contractures. 6. Urinary tract infection. Dr. Martino, this patient was seen in cardiac consultation. I will take the liberty of holding digoxin level, will be checked. Cardizem will be started short-acting 30 mg three times a day for heart rate control. Her blood pressure should be able to tolerated at this level. Monitor on telemetry. Response to IV antibiotics as per yourself. The patient just finished transfusion of 1 unit of packed red cell. Followup evaluations pending for tomorrow morning. I will follow the patient along with you. There does not appear to be any kind of respiratory distress. Cardiac enzymes will be ordered for the morning as well. Digoxin level will be ordered for tomorrow morning as well. Lamont Felix M.D. DR: EVANGELINA JOB#: [id number] CC:
[2019-04-07] MEDS: dilTIAZem HCl 30mg tab GT SCH ×3 (05:42→20:42)
[2019-04-07] MEDS: Piperacillin/Tazobactam 3.375 GM in NS 110 ML IVPB SCH ×3 (05:43→21:57)
[2019-04-07 05:50] LABS: BASOPHILS % (AUTO) 0.4 % (0.0-2.0); EOSINOPHILS % (AUTO) 1.4 % (0.0-3.0); HEMATOCRIT 30.3 % (37.0-47.0); HEMOGLOBIN 9.4 G/DL (12.0-16.0); LYMPHOCYTES % (AUTO) 10.4 % (20.0-45.0); MEAN CORPUSCULAR VOLUME 76 FL (80-99); MONOCYTES % (AUTO) 5.1 % (1.0-10.0); NEUTROPHILS % (AUTO) 82.7 % (45.0-75.0); PLATELET COUNT 427 K/UL (150-450); RED BLOOD COUNT 3.97 M/UL (4.20-5.40); RED CELL DISTRIBUTION WIDTH 15.6 % (11.6-14.8)
[2019-04-07 06:04] LABS: ANION GAP 9 mmol/L (5-15); BLOOD UREA NITROGEN 21 mg/dL (7-18); CALCIUM 8.7 MG/DL (8.5-10.1); CARBON DIOXIDE 26 MMOL/L (21-32); CHLORIDE 109 MMOL/L (98-107); CREATININE 0.6 MG/DL (0.55-1.30); POTASSIUM 3.7 MMOL/L (3.5-5.1); SODIUM 144 MMOL/L (136-145)
--- NOTE | 2019-04-07 06:58 | NUR ---
NURSE NOTES: Attempted to call Clay Jauregui (son of pt) seeking consent for the CTA chest w/ contrast. of Clay answered phone and said he is currently unavailable. I left her the number to the floor. She said Art will call back as soon as possible.
--- NOTE | 2019-04-07 07:12 | NUR ---
NURSE NOTES: Son of patient consented for contrast CTA chest. Form in chart.
--- NOTE | 2019-04-07 07:50 | NUR ---
HAND-OFF: Report given to NAVIN Her. Endorsed plan of care.
--- NOTE | 2019-04-07 07:51 | NUR ---
NURSE NOTES: Received report from Bernardo/RN, Patient is awake, AO x 1, Non verbal, On 2L nasal canula, No acute distress/SOB noted. Bed in lowest position and locked, bed alarm on, side rails x3. Call light and personal belonging within reach. Will continue plan of care.
[2019-04-07 08:00] VITALS: BP 131/77
[2019-04-07] MEDS: Heparin 5000 units/ml inj SUBQ SCH ×2 (09:00→20:50)
--- NOTE | 2019-04-07 09:31 | NUR ---
CTA CHEST W/ COMPLETED.
[2019-04-07] MEDS: Brimonidine 0.2% Opth Sol RIGHT EYE SCH ×3 (09:32→17:46)
[2019-04-07] MEDS: Timoptic 0.25% Op Soln 2.5ml RIGHT EYE SCH ×2 (09:33→17:46)
--- NOTE | 2019-04-07 09:52 | General Progress Note ---
Assessment/Plan Problem List: (1) Anemia ICD Codes: D64.9 - Anemia, unspecified SNOMED: 071073028 Qualifiers: Qualified Codes: D64.9 - Anemia, unspecified (2) Afib ICD Codes: I48.91 - Unspecified atrial fibrillation SNOMED: 47607130 Qualifiers: Qualified Codes: I48.91 - Unspecified atrial fibrillation (3) Sepsis ICD Codes: A41.9 - Sepsis, unspecified organism SNOMED: 70007979 Qualifiers: Qualified Codes: A41.9 - Sepsis, unspecified organism (4) UTI (urinary tract infection) ICD Codes: N39.0 - Urinary tract infection, site not specified SNOMED: 78754103 Qualifiers: Qualified Codes: N39.0 - Urinary tract infection, site not specified Assessment/Plan: abxs rate control DC IVf strat TF Follow labs wound care Discussed with RN Subjective Allergies: Coded Allergies: No Known Allergies (Unverified , 04/05/19) Subjective In NAD Objective Last 24 Hour Vital Signs Date Time Temp Pulse Resp B/P (MAP) Pulse Ox O2 Delivery O2 Flow Rate FiO2 04/07/19 08:00 98.9 86 19 131/77 (95) 98 04/07/19 05:42 99 128/75 04/07/19 04:00 86 04/07/19 04:00 2.0 04/07/19 04:00 97.4 86 18 125/76 (92) 100 04/07/19 00:00 98.1 87 18 121/84 (96) 99 04/07/19 00:00 2.0 04/06/19 23:03 88 138/85 04/06/19 20:38 Nasal Cannula 2.0 04/06/19 20:00 2.0 04/06/19 20:00 86 04/06/19 20:00 97.6 91 24 139/80 (99) 99 04/06/19 19:32 99 Nasal Cannula 2.0 28 04/06/19 19:32 92 18 99 Nasal Cannula 2.0 28 04/06/19 16:59 80 04/06/19 16:00 98.2 90 23 116/70 (85) 97 04/06/19 16:00 2.0 04/06/19 16:00 Nasal Cannula 2.0 04/06/19 14:39 89 127/67 04/06/19 13:02 89 04/06/19 12:00 Bi-pap 04/06/19 12:00 97.7 98 24 127/67 (87) 100 04/06/19 12:00 2.0 Intake and Output 04/06/19 04/07/19 19:00 07:00 Intake Total 1067.5 ml Output Total 351 ml 300 ml Balance 716.5 ml -300 ml Intake Free Water 50 ml IV Total 1017.5 ml Output Urine Total 351 ml 300 ml # Bowel Movements 1 1 Laboratory Tests 04/07/19 04:36: White Blood Count 11.0H, Red Blood Count 3.97L, Hemoglobin 9.4L, Hematocrit 30.3L, Mean Corpuscular Volume 76L, Mean Corpuscular Hemoglobin 23.8L, Mean Corpuscular Hemoglobin Concent 31.1L, Red Cell Distribution Width 15.6H, Platelet Count 427, Mean Platelet Volume 7.6, Neutrophils (%) (Auto) 82.7H, Lymphocytes (%) (Auto) 10.4L, Monocytes (%) (Auto) 5.1, Eosinophils (%) (Auto) 1.4, Basophils (%) (Auto) 0.4, Sodium Level 144, Potassium Level 3.7, Chloride Level 109H, Carbon Dioxide Level 26, Anion Gap 9, Blood Urea Nitrogen 21H, Creatinine 0.6, Estimat Glomerular Filtration Rate , Glucose Level 94, Calcium Level 8.7 Height (Feet): 5 Height (Inches): 4.00 Weight (Pounds): 180 Cardiovascular: irregularly irregular Respiratory/Chest: lungs clear Edema: no edema noted Kennedy Reddy MD Apr 07, 2019 09:52
--- NOTE | 2019-04-07 11:27 | Diagnostic Imaging Report ---
Indication: Chest pain Technique: Continuous helical transaxial imaging of the chest was obtained from the thoracic inlet to the upper abdomen during rapid intravenous contrast administration. Arterial phase of enhancement obtained. Coronal 2-D reformats were also obtained and maximum intensity projection images in multiple planes. Study obtained in a Siemens sensation [address] Automatic Exposure Control was utilized. Total Dose length Product (DLP): 751.[address] Dose Index Volume (CTDIvol): 21.81 mGy Comparison: None Findings: Some breathing motion is present which limits evaluation. The pulmonary artery is well opacified and shows no obvious filling defects. There is no adenopathy, pleural or pericardial effusions are identified. There is no aortic dissection or aneurysm identified within the chest. Aorta is calcified and tortuous and ectatic consistent with atherosclerotic disease. The heart is enlarged. Trace bilateral pleural effusions are present. There is posterior basal atelectasis but no evidence of pneumonia. The visualized part of the upper abdomen notable for distended gallbladder with suspected gallstones, which may be conformed on ultrasound which is recommended. There is also partial visualization of a gastrostomy. There is trace ascites. IMPRESSION: No definite evidence of pulmonary embolus, aortic dissection or aneurysm. Suspected gallstones, only partially imaged on this examination. Recommend further evaluation either with CT or ultrasound. Trace basilar pleural effusions and posterior basal atelectasis. Trace ascites Partial visualization of a gastrostomy. Limited study due to breathing motion The CT scanner at [facility] is accredited by the [employer] and the scans are performed using dose optimization techniques as appropriate to a performed exam including Automatic Exposure control.
[2019-04-07 12:00] VITALS: BP 130/76
--- NOTE | 2019-04-07 12:03 | Pulmonology Progress Note ---
Assessment/Plan Problems: (1) Sepsis (2) UTI (urinary tract infection) (3) Anemia (4) Afib Assessment/Plan ASSESSMENT: The patient is an 83-year-old female, correction patient with dementia, nonverbal at baseline, dysphagia status post G-tube, history of GI bleed, hypertension, hyperlipidemia, atrial fibrillation brought in for acute on chronic anemia and placed on BiPAP for respiratory failure and concern for possible sepsis. PROBLEM LIST: 1. Acute hypoxemic respiratory failure - IMPROVED 2. Systemic inflammatory response syndrome - HEMODYNAMICALLY STABLE 3. Atrial fibrillation initially with RVR, now rate controlled. 4. Acute on chronic anemia. 5. History of GI bleed. 6. Dysphagia, status post G-tube. 7. Dementia. 8. Hypertension. 9. Hyperlipidemia. 10. Hypothyroidism. 11. Elevated D-dimer S/P neg duplex and CT-A TREATMENT PLAN: -Optimize pulmonary hygiene/mobilize as tolerated. -PRN DuoNebs. -Zosyn (day #3) -Follow up Cardiology recommendations. -Monitor volumes and renal function -TF's as tolerated -DVT prophylaxis, heparin subcutaneous. -Monitor hemoglobin and hematocrit, transfuse as needed. -DNAR. Subjective Allergies: Coded Allergies: No Known Allergies (Unverified , 04/05/19) Subjective AFVSS in rate controlled AF No cough no SOB no FC CT-A and duplex neg Objective Last 24 Hour Vital Signs Date Time Temp Pulse Resp B/P (MAP) Pulse Ox O2 Delivery O2 Flow Rate FiO2 04/07/19 11:42 98 Nasal Cannula 2.0 28 04/07/19 09:00 Nasal Cannula 2.0 04/07/19 08:00 88 04/07/19 08:00 98.9 86 19 131/77 (95) 98 04/07/19 05:42 99 128/75 04/07/19 04:00 86 04/07/19 04:00 2.0 04/07/19 04:00 97.4 86 18 125/76 (92) 100 04/07/19 00:00 98.1 87 18 121/84 (96) 99 04/07/19 00:00 2.0 04/06/19 23:03 88 138/85 04/06/19 20:38 Nasal Cannula 2.0 04/06/19 20:00 2.0 8/27/19 20:00 86 04/06/19 20:00 97.6 91 24 139/80 (99) 99 04/06/19 19:32 99 Nasal Cannula 2.0 28 04/06/19 19:32 92 18 99 Nasal Cannula 2.0 28 04/06/19 16:59 80 04/06/19 16:00 98.2 90 23 116/70 (85) 97 04/06/19 16:00 2.0 04/06/19 16:00 Nasal Cannula 2.0 04/06/19 14:39 89 127/67 04/06/19 13:02 89 Intake and Output 04/06/19 04/07/19 19:00 07:00 Intake Total 1067.5 ml Output Total 351 ml 300 ml Balance 716.5 ml -300 ml Intake Free Water 50 ml IV Total 1017.5 ml Output Urine Total 351 ml 300 ml # Bowel Movements 1 1 General Appearance: no acute distress, cachetic HEENT: normocephalic, atraumatic, anicteric, mucous membranes moist Respiratory/Chest: chest wall non-tender, lungs clear, normal breath sounds, no respiratory distress, no accessory muscle use Cardiovascular: irregularly irregular Abdomen: normal bowel sounds, soft, non tender, no organomegaly, non distended , no mass, other - GT Extremities: no cyanosis, no clubbing, no edema Microbiology Date/Time Source Procedure Growth Status 04/05/19 12:30 Blood Blood Culture - Preliminary NO GROWTH AFTER 24 HOURS Resulted 04/05/19 12:10 Blood Blood Culture - Preliminary NO GROWTH AFTER 24 HOURS Resulted 04/05/19 16:00 Nasal Nares MRSA Culture - Final Staphylococcus Aureus - Mrsa Complete 04/05/19 16:00 Rectum VRE Culture - Final NO VANCOMYCIN RESISTANT ENTEROCOCCUS ... Complete Laboratory Tests 04/07/19 04:36: White Blood Count 11.0H, Red Blood Count 3.97L, Hemoglobin 9.4L, Hematocrit 30.3L, Mean Corpuscular Volume 76L, Mean Corpuscular Hemoglobin 23.8L, Mean Corpuscular Hemoglobin Concent 31.1L, Red Cell Distribution Width 15.6H, Platelet Count 427, Mean Platelet Volume 7.6, Neutrophils (%) (Auto) 82.7H, Lymphocytes (%) (Auto) 10.4L, Monocytes (%) (Auto) 5.1, Eosinophils (%) (Auto) 1.4, Basophils (%) (Auto) 0.4, Sodium Level 144, Potassium Level 3.7, Chloride Level 109H, Carbon Dioxide Level 26, Anion Gap 9, Blood Urea Nitrogen 21H, Creatinine 0.6, Estimat Glomerular Filtration Rate , Glucose Level 94, Calcium Level 8.7 Current Medications Medications (Trade) Dose Ordered Sig/Adrian Route PRN Reason Start Time Stop Time Status Last Admin Dose Admin Acetaminophen (Tylenol) 650 mg Q6H PRN GT Mild Pain/Temp > 100.5 04/06/19 21:00 05/05/19 20:59 Albuterol/ Ipratropium (Albuterol/ Ipratropium) 3 ml Q4H PRN HHN Shortness of Breath 04/06/19 22:00 04/10/19 17:59 Atorvastatin Calcium (Lipitor) 10 mg BEDTIME GT 04/06/19 21:00 05/06/19 20:59 04/06/19 23:03 Brimonidine Tartrate (Alphagan) 1 drop TID RIGHT EYE 04/07/19 09:00 05/06/19 08:59 04/07/19 09:32 Diltiazem HCl (Cardizem) 30 mg EVERY 8 HOURS GT 04/06/19 22:00 05/05/19 21:59 04/07/19 05:42 Famotidine (Pepcid) 20 mg Q12HR GT 04/06/19 21:00 05/06/19 08:59 04/07/19 09:31 Heparin Sodium (Porcine) (Heparin 5000 units/ml) 5,000 units EVERY 12 HOURS SUBQ 04/06/19 21:00 05/06/19 08:59 Iopamidol (Isovue-370 150ml) 150 ml NOW PRN INJ Radiology Procedure 04/07/19 15:30 04/08/19 15:28 Piperacillin Sod/ Tazobactam Sod 3.375 gm/Sodium Chloride 110 ml @ 27.5 mls/hr EVERY 8 HOURS IVPB 04/06/19 22:00 04/13/19 05:59 04/07/19 05:43 Timolol Maleate (Timoptic 0.25% Op Soln) 1 drop BID RIGHT EYE 04/07/19 09:00 05/06/19 08:59 04/07/19 09:33 Lito Jc MD Apr 07, 2019 12:02
[2019-04-07] MEDS ORDERED: Isovue-370 150ml vial INJ PRN (15:30)
[2019-04-07 16:00] VITALS: BP 131/81
--- NOTE | 2019-04-07 16:03 | NUR ---
DISCHARGE PLANNING: NOTE CLINICALS FAXED TO [facility] ROOM NUMBER [id number] PROVIDED BY BRYN AT [facility] IN ANTICIPATION OF [place] 04/08
--- NOTE | 2019-04-07 16:04 | Consultation ---
History of Present Illness General Date patient seen: Apr 07, 2019 Reason for Hospitalization: Abnormal Labs Present Illness HPI 83F with multiple medical comorbidities presented for abnormal labs, anemia, work up. on admission noted to have multiple decubitus ulcers. surgery called to evaluate and assist with care. patient seen, chart reviewed, patient examined. patient unable to provide history and obtained from chart Allergies: Coded Allergies: No Known Allergies (Unverified , 04/05/19) Medication History Scheduled Atorvastatin Calcium* (Lipitor*), 10 MG GT BEDTIME, (Reported) Brimonidine Tartrate* (Alphagan*), 1 DROP RIGHT EYE TID, (Reported) Digoxin* (Digoxin*), 0.25 MG GT DAILY, (Reported) Levothyroxine Sodium* (Synthroid*), 75 MCG GT DAILY, (Reported) Losartan Potassium (Losartan Potassium), 100 MG GT DAILY, (Reported) Polyethylene Glycol 3350* (Polyethylene Glycol 3350*), 17 GM ORAL DAILY, ( Reported) Ranitidine Hcl (Ranitidine Hcl), 10 MG GT BID, (Reported) Timolol Maleate/Pf (Timoptic 0.25% Ocudose Drop), 1 EACH RIGHT EYE BID, ( Reported) Scheduled PRN Acetaminophen 160MG/5ML* (Acetaminophen*), 10 ML GT Q6HR PRN for Mild Pain/Temp > 100.5, (Reported) Ipratropium/Albuterol Sulfate (Iprat-Albut 0.5-3(2.5) Mg/3 Ml), 3 ML HHN Q6HR PRN for Shortness of Breath, (Reported) Magnesium Hydroxide* (Milk Of Magnesia*), 30 ML GT BID PRN for Constipation, ( Reported) Miscellaneous Medications Timolol Maleate/Pf (Timoptic 0.25% Ocudose Drop), 1 EACH OP, (Reported) Patient History Limited by: age, medical condition History Provided By: Medical Record, PMD Healthcare decision maker Resuscitation status Do Not Resuscitate Advanced Directive on File Past Medical/Surgical History Past Medical/Surgical History: (1) Decubitus skin ulcer (2) Sepsis (3) UTI (urinary tract infection) (4) Anemia (5) Afib Review of Systems Review of Symptoms General ROS: no weight loss or fever Psychological ROS: no depression or mood changes, no memory loss Ophthalmic ROS: no visual changes or eye irritation ENT ROS: no nasal congestion, hearing loss, dizziness Allergy and Immunology ROS: no allergic symptoms or urticaria Hematological and Lymphatic ROS: no swollen glands, unusual bleeding or bruising Endocrine ROS: no polyuria, polydipsia, weight changes, temperature intolerance Respiratory ROS: no cough, shortness of breath, or wheezing Cardiovascular ROS: no chest pain or dyspnea on exertion Gastrointestinal ROS: denies abdominal pain, bright red blood in stool. Musculoskeletal ROS: no myalgias or arthralgias Neurological ROS: no TIA or stroke symptoms Dermatological ROS: no new or changing skin lesions, rashes or pruritis difficult to obtain from patient given medical condition Physical Exam Physical Exam General appearance: alert, cooperative, no distress, appears stated age Head: Normocephalic, without obvious abnormality, atraumatic Eyes: conjunctivae/corneas clear. PERRL, EOM's intact. Fundi benign Throat: Lips, mucosa, and tongue normal. Teeth and gums normal Neck: supple, symmetrical, trachea midline, no adenopathy, thyroid: not enlarged, symmetric, no tenderness/mass/nodules, no carotid bruit and no JVD Lungs: clear to auscultation bilaterally Heart: regular rate and rhythm, S1, S2 normal, no murmur, click, rub or gallop Abdomen: soft, non-tender. Bowel sounds normal. No masses, no organomegaly Extremities: extremities normal, atraumatic, no cyanosis or edema Pulses: 2+ and symmetric Skin: Skin color, texture, turgor normal. No rashes or lesions Neurologic: Grossly normal Last 24 Hour Vital Signs Date Time Temp Pulse Resp B/P (MAP) Pulse Ox O2 Delivery O2 Flow Rate FiO2 04/07/19 13:24 97 130/76 04/07/19 12:00 98.6 82 18 130/76 (94) 97 04/07/19 12:00 97 04/07/19 11:42 98 Nasal Cannula 2.0 04/07/19 09:00 Nasal Cannula 2.0 04/07/19 08:00 88 04/07/19 08:00 98.9 86 19 131/77 (95) 98 04/07/19 05:42 99 128/75 04/07/19 04:00 86 04/07/19 04:00 2.0 04/07/19 04:00 97.4 86 18 125/76 (92) 100 8/28/19 00:00 98.1 87 18 121/84 (96) 99 04/07/19 00:00 2.0 04/06/19 23:03 88 138/85 04/06/19 20:38 Nasal Cannula 2.0 04/06/19 20:00 2.0 04/06/19 20:00 86 04/06/19 20:00 97.6 91 24 139/80 (99) 99 04/06/19 19:32 99 Nasal Cannula 2.0 28 04/06/19 19:32 92 18 99 Nasal Cannula 2.0 28 04/06/19 16:59 80 Intake and Output 04/06/19 04/07/19 19:00 07:00 Intake Total 1067.5 ml Output Total 351 ml 300 ml Balance 716.5 ml -300 ml Intake Free Water 50 ml IV Total 1017.5 ml Output Urine Total 351 ml 300 ml # Bowel Movements 1 1 Laboratory Tests Test 04/07/19 04:36 White Blood Count 11.0 K/UL (4.8-10.8) H Red Blood Count 3.97 M/UL (4.20-5.40) L Hemoglobin 9.4 G/DL (12.0-16.0) L Hematocrit 30.3 % (37.0-47.0) L Mean Corpuscular Volume 76 FL (80-99) L Mean Corpuscular Hemoglobin 23.8 PG (27.0-31.0) L Mean Corpuscular Hemoglobin Concent 31.1 G/DL (32.0-36.0) L Red Cell Distribution Width 15.6 % (11.6-14.8) H Platelet Count 427 K/UL (150-450) Mean Platelet Volume 7.6 FL (6.5-10.1) Neutrophils (%) (Auto) 82.7 % (45.0-75.0) H Lymphocytes (%) (Auto) 10.4 % (20.0-45.0) L Monocytes (%) (Auto) 5.1 % (1.0-10.0) Eosinophils (%) (Auto) 1.4 % (0.0-3.0) Basophils (%) (Auto) 0.4 % (0.0-2.0) Sodium Level 144 MMOL/L (136-145) Potassium Level 3.7 MMOL/L (3.5-5.1) Chloride Level 109 MMOL/L (98-107) H Carbon Dioxide Level 26 MMOL/L (21-32) Anion Gap 9 mmol/L (5-15) Blood Urea Nitrogen 21 mg/dL (7-18) H Creatinine 0.6 MG/DL (0.55-1.30) Estimat Glomerular Filtration Rate mL/min (>60) Glucose Level 94 MG/DL (74-106) Calcium Level 8.7 MG/DL (8.5-10.1) Height (Feet): 5 Height (Inches): 4.00 Weight (Pounds): 180 Medications Current Medications Medications (Trade) Dose Ordered Sig/Adrian Route PRN Reason Start Time Stop Time Status Last Admin Dose Admin Acetaminophen (Tylenol) 650 mg Q6H PRN GT Mild Pain/Temp > 100.5 04/06/19 21:00 05/05/19 20:59 Albuterol/ Ipratropium (Albuterol/ Ipratropium) 3 ml Q4H PRN HHN Shortness of Breath 04/06/19 22:00 04/10/19 17:59 Atorvastatin Calcium (Lipitor) 10 mg BEDTIME GT 04/06/19 21:00 05/06/19 20:59 04/06/19 23:03 Brimonidine Tartrate (Alphagan) 1 drop TID RIGHT EYE 04/07/19 09:00 05/06/19 08:59 04/07/19 13:25 Diltiazem HCl (Cardizem) 30 mg EVERY 8 HOURS GT 04/06/19 22:00 05/05/19 21:59 04/07/19 13:24 Famotidine (Pepcid) 20 mg Q12HR GT 04/06/19 21:00 05/06/19 08:59 04/07/19 09:31 Heparin Sodium (Porcine) (Heparin 5000 units/ml) 5,000 units EVERY 12 HOURS SUBQ 04/06/19 21:00 05/06/19 08:59 Iopamidol (Isovue-370 150ml) 150 ml NOW PRN INJ Radiology Procedure 04/07/19 15:30 04/08/19 15:28 Piperacillin Sod/ Tazobactam Sod 3.375 gm/Sodium Chloride 110 ml @ 27.5 mls/hr EVERY 8 HOURS IVPB 04/06/19 22:00 04/13/19 05:59 04/07/19 13:26 Timolol Maleate (Timoptic 0.25% Op Soln) 1 drop BID RIGHT EYE 04/07/19 09:00 05/06/19 08:59 04/07/19 09:33 Assessment/Plan Problem List: (1) Sepsis Assessment & Plan: leukocytosis anemia abnormal labs as below for care plan nutritional optimization DAILY ESTIMATED NEEDS: Needs based on Pulmonary, wound/ 69kg 25-30 kcals/kg 8779-3196 total kcals 1.25-1.5 g protein/kg 86-103 g total protein 25-30 mL/kg 2150-4711 total fluid mLs NUTRITION DIAGNOSIS: * Swallowing difficulty R/T dysphagia as evidenced by PEG dep, NPO at this time * Increased kcal/prot needs R/T wound healing as evidenced by pt admitted w/ lt foot wound, pending eval. CURRENT TF:NPO ENTERAL NUTRITION RECOMMENDATIONS: Osmolite 1.5 @ 55ml/hr x 24 hrs + Prosource 1pkt QD to provide 1320ml, 1980kcal , 83g + 11g prot, 1005ml free water * As medically appropriate, initiate TF * Rec to continue Osmolite 1.5 (TF @ SNF) * Initiate Osmoltie 1.5 @ 35ml/hr x 6 hrs, advance 10ml q 4-6 hrs as tolerated to goal rate. * Add Prosource 1pkt daily to meet protein needs * HOB over 30 degrees/ water flush per MD ADDITIONAL RECOMMENDATIONS: * Calibrated bedscale wt for accurate CBW (per SNF record, [id number] on 03/15/19, ht=68") * Resume TF as medically appropriate * Wound healing: Add Vit C 250mg QD + Toni 1pkt BID * Monitor lytes, replete as needed ICD Codes: A41.9 - Sepsis, unspecified organism SNOMED: 78161470 Qualifiers: Qualified Codes: A41.9 - Sepsis, unspecified organism (2) UTI (urinary tract infection) ICD Codes: N39.0 - Urinary tract infection, site not specified SNOMED: 84394655 Qualifiers: Qualified Codes: N39.0 - Urinary tract infection, site not specified (3) Anemia ICD Codes: D64.9 - Anemia, unspecified SNOMED: 443087249 Qualifiers: Qualified Codes: D64.9 - Anemia, unspecified (4) Afib ICD Codes: I48.91 - Unspecified atrial fibrillation SNOMED: 52335767 Qualifiers: Qualified Codes: I48.91 - Unspecified atrial fibrillation (5) Decubitus skin ulcer Assessment & Plan: Pt presented on admission with contractures and multiple pressure injuries. Non-blanchabe erythema with fluctuance L heel and plantar aspect of L heel. Non-blanching erythema with fluctuance R heel. Non-blanching erythema without fluctuance or induration Lateral R malleolus. Non-blanching erythema without induration or fluctuance Lateral L malleolus. Non-blanching erythema without fluctuance or induration distal/lateral L foot. Necrotic wound medial/lateral L foot . Base of wound is fluctuant, oozing small amt purulent exudate. Borders and periwound are erythematous. Non-blanching erythema without induration or fluctuance Sacrum. No other skin concerns noted. Tx.Plan: Apply Moisture Barrier paste to sacrum. Cover with Optifoam drsg. Change every 3 days and prn. Apply Cavilon Skin Barrier to R lateral malleolus ,R heel and R hallux. Cover each site with Optifoam drsg. Change every 7 days and prn. Apply Cavilon Skin Barrier to L lateral malleolus , L heel ,L hallux .Cover each site with Optifoam drsg. Change every 7 days and prn. Clean Wound lateral/medial L foot with saline. Apply Therahoney. Cover with Optifoam drsg. Change Daily and prn. Reposition at least every 2hours or as tolerated. APM/NIKOLAI mattress overlay. Off-load heels with pillow. ICD Codes: L89.90 - Pressure ulcer of unspecified site, unspecified stage SNOMED: [id number] SolomoncherieEfe Apr 07, 2019 16:04
--- NOTE | 2019-04-07 19:00 | Consultation ---
DATE OF CONSULTATION: 04/07/2019 INFECTIOUS DISEASE CONSULTATION CONSULTING PHYSICIAN: Billy Martino M.D. PRIMARY ATTENDING PHYSICIAN: Kennedy Martino M.D. REASON FOR CONSULT: Sepsis, UTI. HISTORY OF PRESENT ILLNESS: This 83-year-old white female admitted on 04/05/2019 from a nursing facility because of abnormal labs. The patient had anemia with hemoglobin of 7.1. She has tachycardia, tachypnea, and hypoxemia, was put on BiPAP, had lactic acidosis. The patient is nonverbal. PAST MEDICAL HISTORY: She has dementia, aphasia, atrial fibrillation, status post G-tube, history of colocutaneous fistula, subdural hematoma, recent admission to [facility] for GI bleeding. ALLERGIES: No known drug allergies. MEDICATIONS: Alphagan eye drops, timolol eye drops, Zosyn, diltiazem, ipratropium inhaler, Tylenol, Lipitor, simvastatin, heparin. SOCIAL HISTORY: snf resident. . No other history obtainable. Code Status is DNR. PHYSICAL EXAMINATION: VITAL SIGNS: Temperature 98.9, pulse 86, blood pressure 131/77. GENERAL APPEARANCE: No acute distress. HEAD AND NECK: Slightly dry mouth. She has some ptosis in right eye. HEART: Normal rate. LUNGS: Clear. ABDOMEN: Soft. She has a G-tube feeding without leaking. EXTREMITIES: No edema or contracture. SKIN: Left lateral foot pressure ulcer. NEUROLOGIC: Aphasic. LABORATORY DATA: UA showed wbc's of 5 to 10, leukocyte esterase 3+, bacteria few. Sodium 144, potassium 3.1, chloride 109, bicarbonate 26, BUN 21, creatinine 0.6. WBC 85521 at the time of admission, hemoglobin 9.4, hematocrit 30.3, platelets 427,000. MRSA screen positive. Blood culture x2 are negative. VRE screening is negative. IMPRESSION: Sepsis or systemic inflammatory response with tachycardia and tachypnea. The patient has hypoxemia that is resolved. She had lactic acidosis, atrial fibrillation with rapid ventricular rate. She has gallstone, has pulmonary hypertension, edema. RECOMMENDATIONS: Continue Zosyn. We will follow up the culture. If the culture remains negative, we will stop antibiotics soon. At the end of my exam, I thank Dr. Martino for involving me in the care of this patient. Billy Martino M.D. DR: JUSTIN JOB#: [id number] CC: KAJAL
--- NOTE | 2019-04-07 19:15 | NUR ---
NURSE NOTES: Received patient from NAVIN Her, patient in stable condition, not verbal, responsive to stimuli, IV on R hand G 20, asymptomatic, intact, patent, Gtube stoma intact, tube patent. Reviewed plan of care and wound care with outgoing nurse. Bed low&locked, side rails upx3, call light within reach, will continue to monitor and reassess.
--- NOTE | 2019-04-07 19:44 | NUR ---
HAND-OFF: Report given to Hermelinda/RN, Patient is in stable condition, Endorsed plan of care.
[2019-04-07 20:00] VITALS: BP 135/92
--- NOTE | 2019-04-07 20:09 | Cardiology Progress Note ---
Assessment/Plan Assessment/Plan afib perm anemia uti contracture dementia cardizem for hr control seem fine is not on bipap now trop neg ekg not changed s/p prbc tx not on anticoagualtion at this time stool ob pulm fu Subjective ROS Limited/Unobtainable: Yes Objective Last 24 Hour Vital Signs Date Time Temp Pulse Resp B/P (MAP) Pulse Ox O2 Delivery O2 Flow Rate FiO2 04/07/19 16:00 98 04/07/19 16:00 97.6 97 19 131/81 (98) 96 04/07/19 13:24 97 130/76 04/07/19 12:00 98.6 82 18 130/76 (94) 97 04/07/19 12:00 97 04/07/19 11:42 98 Nasal Cannula 2.0 28 04/07/19 09:00 Nasal Cannula 2.0 04/07/19 08:00 88 04/07/19 08:00 98.9 86 19 131/77 (95) 98 04/07/19 05:42 99 128/75 04/07/19 04:00 86 04/07/19 04:00 2.0 04/07/19 04:00 97.4 86 18 125/76 (92) 100 04/07/19 00:00 98.1 87 18 121/84 (96) 99 04/07/19 00:00 2.0 04/06/19 23:03 88 138/85 04/06/19 20:38 Nasal Cannula 2.0 General Appearance: no apparent distress Neck: no JVD Cardiovascular: irregularly irregular Respiratory/Chest: lungs clear Abdomen: non tender, soft Extremities: no swelling - contracted Intake and Output 04/06/19 04/07/19 19:00 07:00 Intake Total 1067.5 ml Output Total 351 ml 300 ml Balance 716.5 ml -300 ml Intake Free Water 50 ml IV Total 1017.5 ml Output Urine Total 351 ml 300 ml # Bowel Movements 1 1 Laboratory Tests Test 04/07/19 04:36 White Blood Count 11.0 K/UL (4.8-10.8) H Red Blood Count 3.97 M/UL (4.20-5.40) L Hemoglobin 9.4 G/DL (12.0-16.0) L Hematocrit 30.3 % (37.0-47.0) L Mean Corpuscular Volume 76 FL (80-99) L Mean Corpuscular Hemoglobin 23.8 PG (27.0-31.0) L Mean Corpuscular Hemoglobin Concent 31.1 G/DL (32.0-36.0) L Red Cell Distribution Width 15.6 % (11.6-14.8) H Platelet Count 427 K/UL (150-450) Mean Platelet Volume 7.6 FL (6.5-10.1) Neutrophils (%) (Auto) 82.7 % (45.0-75.0) H Lymphocytes (%) (Auto) 10.4 % (20.0-45.0) L Monocytes (%) (Auto) 5.1 % (1.0-10.0) Eosinophils (%) (Auto) 1.4 % (0.0-3.0) Basophils (%) (Auto) 0.4 % (0.0-2.0) Sodium Level 144 MMOL/L (136-145) Potassium Level 3.7 MMOL/L (3.5-5.1) Chloride Level 109 MMOL/L (98-107) H Carbon Dioxide Level 26 MMOL/L (21-32) Anion Gap 9 mmol/L (5-15) Blood Urea Nitrogen 21 mg/dL (7-18) H Creatinine 0.6 MG/DL (0.55-1.30) Estimat Glomerular Filtration Rate mL/min (>60) Glucose Level 94 MG/DL (74-106) Calcium Level 8.7 MG/DL (8.5-10.1) Microbiology Date/Time Source Procedure Growth Status 04/05/19 12:30 Blood Blood Culture - Preliminary NO GROWTH AFTER 24 HOURS Resulted 04/05/19 12:10 Blood Blood Culture - Preliminary NO GROWTH AFTER 24 HOURS Resulted 04/05/19 16:00 Nasal Nares MRSA Culture - Final Staphylococcus Aureus - Mrsa Complete 04/05/19 16:00 Rectum VRE Culture - Final NO VANCOMYCIN RESISTANT ENTEROCOCCUS ... Complete Lamont Felix MD Apr 07, 2019 20:09
[2019-04-07] MEDS ORDERED: NS 275ml ONE (20:38)
[2019-04-07] MEDS ORDERED: Tubing IV Secondary IV ONE ×2 (20:38→20:40)
[2019-04-07] MEDS ORDERED: D5 1/2NS 1000ml IV ONE (20:38)
[2019-04-08] VITALS: BP 129/80
[2019-04-08 04:00] VITALS: BP 136/85
[2019-04-08] MEDS: Piperacillin/Tazobactam 3.375 GM in NS 110 ML IVPB SCH ×3 (05:29→21:09)
[2019-04-08] MEDS: dilTIAZem HCl 30mg tab GT SCH ×3 (05:30→21:09)
--- NOTE | 2019-04-08 07:20 | NUR ---
HAND-OFF: Report given to NAVIN Her,patient in stable condition, plan of care endorsed.
--- NOTE | 2019-04-08 07:31 | NUR ---
NURSE NOTES: Received report from Deyanira/RN, Patient is asleep, lying semi-rubi's, resting comfortably. AAO x 1, On 2L nasal canula, No acute distress/SOB noted. IV site patent, no bleeding or infiltration noted. Bed in lowest position and locked, bed alarms on, side rails up x3. Call light and personal belonging within reach. Will continue plan of care.
[2019-04-08 07:40] LABS: BASOPHILS % (AUTO) 0.6 % (0.0-2.0); EOSINOPHILS % (AUTO) 0.9 % (0.0-3.0); HEMATOCRIT 30.6 % (37.0-47.0); HEMOGLOBIN 9.6 G/DL (12.0-16.0); LYMPHOCYTES % (AUTO) 10.8 % (20.0-45.0); MEAN CORPUSCULAR VOLUME 75 FL (80-99); MONOCYTES % (AUTO) 5.1 % (1.0-10.0); NEUTROPHILS % (AUTO) 82.6 % (45.0-75.0); PLATELET COUNT 471 K/UL (150-450); RED BLOOD COUNT 4.07 M/UL (4.20-5.40); RED CELL DISTRIBUTION WIDTH 16.3 % (11.6-14.8); WHITE BLOOD COUNT 12.1 K/UL (4.8-10.8)
[2019-04-08 07:58] LABS: ALANINE AMINOTRANSFERASE 30 U/L (12-78); ALBUMIN 2.2 G/DL (3.4-5.0); ALBUMIN/GLOBULIN RATIO 0.5 (1.0-2.7); ALKALINE PHOSPHATASE 84 U/L (46-116); ANION GAP 9 mmol/L (5-15); ASPARTATE AMINO TRANSFERASE 12 U/L (15-37); BILIRUBIN,TOTAL 0.3 MG/DL (0.2-1.0); BLOOD UREA NITROGEN 19 mg/dL (7-18); CALCIUM 8.6 MG/DL (8.5-10.1); CARBON DIOXIDE 25 MMOL/L (21-32); CHLORIDE 106 MMOL/L (98-107); CREATININE 0.7 MG/DL (0.55-1.30); POTASSIUM 3.5 MMOL/L (3.5-5.1); SODIUM 140 MMOL/L (136-145)
[2019-04-08 08:00] VITALS: BP 134/87
[2019-04-08] MEDS: Heparin 5000 units/ml inj SUBQ SCH ×2 (09:00→21:00)
--- NOTE | 2019-04-08 09:11 | Pulmonology Progress Note ---
Assessment/Plan Problems: (1) Sepsis (2) UTI (urinary tract infection) (3) Anemia (4) Afib Assessment/Plan ASSESSMENT: The patient is an 83-year-old female, [facility] patient with dementia, nonverbal at baseline, dysphagia status post G-tube, history of GI bleed, hypertension, hyperlipidemia, atrial fibrillation brought in for acute on chronic anemia and placed on BiPAP for respiratory failure and concern for possible sepsis. PROBLEM LIST: 1. Acute hypoxemic respiratory failure - IMPROVED 2. Systemic inflammatory response syndrome - HEMODYNAMICALLY STABLE 3. Atrial fibrillation initially with RVR, now rate controlled. 4. Acute on chronic anemia. 5. History of GI bleed. 6. Dysphagia, status post G-tube. 7. Dementia. 8. Hypertension. 9. Hyperlipidemia. 10. Hypothyroidism. 11. Elevated D-dimer S/P neg duplex and CT-A TREATMENT PLAN: -Optimize pulmonary hygiene/mobilize as tolerated. -PRN DuoNebs. -Zosyn (day #4) per ID -Follow up Cardiology recommendations. -Monitor volumes and renal function -TF's as tolerated -DVT prophylaxis, heparin subcutaneous. -Monitor hemoglobin and hematocrit, transfuse as needed. F/U FOBT -DNAR. Subjective Allergies: Coded Allergies: No Known Allergies (Unverified , 04/05/19) Subjective AFVSS in rate controlled AF No cough no SOB no FC ? tarry stool per RN Objective Last 24 Hour Vital Signs Date Time Temp Pulse Resp B/P (MAP) Pulse Ox O2 Delivery O2 Flow Rate FiO2 04/08/19 08:00 98.2 102 20 134/87 (103) 97 04/08/19 05:30 106 136/85 04/08/19 04:00 102 04/08/19 04:00 98.6 106 18 136/85 (102) 98 04/08/19 00:00 99.5 106 18 129/80 (96) 99 04/08/19 00:00 95 04/07/19 21:00 Nasal Cannula 2.0 04/07/19 20:42 103 135/92 04/07/19 20:00 97.6 103 18 135/92 (106) 97 04/07/19 20:00 95 Nasal Cannula 2.0 28 04/07/19 20:00 101 04/07/19 16:00 98 04/07/19 16:00 97.6 97 19 131/81 (98) 96 04/07/19 13:24 97 130/76 04/07/19 12:00 98.6 82 18 130/76 (94) 97 04/07/19 12:00 97 04/07/19 11:42 98 Nasal Cannula 2.0 28 Intake and Output 04/07/19 04/08/19 19:00 07:00 Intake Total 360 ml 1080 ml Output Total 750 ml Balance -390 ml 1080 ml Intake Free Water 220 ml 240 ml Tube Feeding 140 ml 840 ml Output Urine Total 750 ml # Voids 1 1 # Bowel Movements 1 1 General Appearance: no acute distress, cachetic HEENT: normocephalic, atraumatic, anicteric, mucous membranes moist Respiratory/Chest: chest wall non-tender, lungs clear, normal breath sounds, no respiratory distress, no accessory muscle use Cardiovascular: irregularly irregular Abdomen: normal bowel sounds, soft, non tender, no organomegaly, non distended , no mass, other - GT CDI Extremities: no cyanosis, no clubbing, no edema, other - contracted Microbiology Date/Time Source Procedure Growth Status 04/05/19 12:30 Blood Blood Culture - Preliminary NO GROWTH AFTER 48 HOURS Resulted 04/05/19 12:10 Blood Blood Culture - Preliminary NO GROWTH AFTER 48 HOURS Resulted 04/05/19 16:00 Nasal Nares MRSA Culture - Final Staphylococcus Aureus - Mrsa Complete 04/05/19 16:00 Rectum VRE Culture - Final NO VANCOMYCIN RESISTANT ENTEROCOCCUS ... Complete Laboratory Tests 04/08/19 07:00: White Blood Count 12.1H, Red Blood Count 4.07L, Hemoglobin 9.6L, Hematocrit 30.6L, Mean Corpuscular Volume 75L, Mean Corpuscular Hemoglobin 23.7L, Mean Corpuscular Hemoglobin Concent 31.4L, Red Cell Distribution Width 16.3H, Platelet Count 471H, Mean Platelet Volume 7.5, Neutrophils (%) (Auto) 82.6H, Lymphocytes (%) (Auto) 10.8L, Monocytes (%) (Auto) 5.1, Eosinophils (%) (Auto) 0.9, Basophils (%) (Auto) 0.6, Sodium Level 140, Potassium Level 3.5, Chloride Level 106, Carbon Dioxide Level 25, Anion Gap 9, Blood Urea Nitrogen 19H, Creatinine 0.7, Estimat Glomerular Filtration Rate , Glucose Level 177H, Calcium Level 8.6, Total Bilirubin 0.3, Aspartate Amino Transf (AST/SGOT) 12L, Alanine Aminotransferase (ALT/SGPT) 30, Alkaline Phosphatase 84, Total Protein 6.6, Albumin 2.2L, Globulin 4.4, Albumin/Globulin Ratio 0.5L Current Medications Medications (Trade) Dose Ordered Sig/Adrian Route PRN Reason Start Time Stop Time Status Last Admin Dose Admin Acetaminophen (Tylenol) 650 mg Q6H PRN GT Mild Pain/Temp > 100.5 04/06/19 21:00 05/05/19 20:59 Albuterol/ Ipratropium (Albuterol/ Ipratropium) 3 ml Q4H PRN HHN Shortness of Breath 04/06/19 22:00 04/10/19 17:59 Atorvastatin Calcium (Lipitor) 10 mg BEDTIME GT 04/06/19 21:00 05/06/19 20:59 04/07/19 20:42 Brimonidine Tartrate (Alphagan) 1 drop TID RIGHT EYE 04/07/19 09:00 05/06/19 08:59 04/07/19 17:46 Diltiazem HCl (Cardizem) 30 mg EVERY 8 HOURS GT 04/06/19 22:00 05/05/19 21:59 04/08/19 05:30 Famotidine (Pepcid) 20 mg Q12HR GT 04/06/19 21:00 05/06/19 08:59 04/07/19 20:43 Heparin Sodium (Porcine) (Heparin 5000 units/ml) 5,000 units EVERY 12 HOURS SUBQ 04/06/19 21:00 05/06/19 08:59 Iopamidol (Isovue-370 150ml) 150 ml NOW PRN INJ Radiology Procedure 04/07/19 15:30 04/08/19 15:28 Piperacillin Sod/ Tazobactam Sod 3.375 gm/Sodium Chloride 110 ml @ 27.5 mls/hr EVERY 8 HOURS IVPB 04/06/19 22:00 04/13/19 05:59 04/08/19 05:29 Timolol Maleate (Timoptic 0.25% Op Soln) 1 drop BID RIGHT EYE 04/07/19 09:00 05/06/19 08:59 04/07/19 17:46 Lito Jc MD Apr 08, 2019 09:11
[2019-04-08] MEDS: Brimonidine 0.2% Opth Sol RIGHT EYE SCH ×3 (09:27→17:44)
[2019-04-08] MEDS: Timoptic 0.25% Op Soln 2.5ml RIGHT EYE SCH ×2 (09:28→17:45)
--- NOTE | 2019-04-08 09:34 | NUR ---
NURSE NOTES: Heparin was not administered, because patient has black ciara stool. OB stool order by , will carry out order.
--- NOTE | 2019-04-08 10:55 | Infectious Diseases Prog Note ---
Assessment/Plan Assessment/Plan IMPRESSION: Sepsis or systemic inflammatory response Pyuria Hypoxemia that is resolved. Lactic acidosis, atrial fibrillation with rapid ventricular rate. Gallstone, Pulmonary hypertension, Anemia RECOMMENDATIONS: Continue Zosyn. Abdominal US Subjective ROS Limited/Unobtainable: Yes Allergies: Coded Allergies: No Known Allergies (Unverified , 04/05/19) Objective Vital Signs Last 24 Hour Vital Signs Date Time Temp Pulse Resp B/P (MAP) Pulse Ox O2 Delivery O2 Flow Rate FiO2 04/08/19 09:00 Nasal Cannula 2.0 04/08/19 08:00 106 04/08/19 08:00 98.2 102 20 134/87 (103) 97 04/08/19 05:30 106 136/85 04/08/19 04:00 102 04/08/19 04:00 98.6 106 18 136/85 (102) 98 04/08/19 00:00 99.5 106 18 129/80 (96) 99 04/08/19 00:00 95 04/07/19 21:00 Nasal Cannula 2.0 04/07/19 20:42 103 135/92 04/07/19 20:00 97.6 103 18 135/92 (106) 97 04/07/19 20:00 95 Nasal Cannula 2.0 28 04/07/19 20:00 101 04/07/19 16:00 98 04/07/19 16:00 97.6 97 19 131/81 (98) 96 04/07/19 13:24 97 130/76 04/07/19 12:00 98.6 82 18 130/76 (94) 97 04/07/19 12:00 97 04/07/19 11:42 98 Nasal Cannula 2.0 28 Height (Feet): 5 Height (Inches): 4.00 Weight (Pounds): 180 General Appearance: no acute distress HEENT: mucous membranes moist Respiratory/Chest: lungs clear Cardiovascular: tachycardia Abdomen: soft, non tender, other - GT feeding Extremities: no edema Skin: ulcers, other - left foot Neurologic/Psychiatric: aphasia Microbiology Date/Time Source Procedure Growth Status 04/05/19 12:30 Blood Blood Culture - Preliminary NO GROWTH AFTER 48 HOURS Resulted 04/05/19 12:10 Blood Blood Culture - Preliminary NO GROWTH AFTER 48 HOURS Resulted 04/05/19 16:00 Nasal Nares MRSA Culture - Final Staphylococcus Aureus - Mrsa Complete 04/05/19 16:00 Rectum VRE Culture - Final NO VANCOMYCIN RESISTANT ENTEROCOCCUS ... Complete Laboratory Tests Test 04/08/19 07:00 White Blood Count 12.1 K/UL (4.8-10.8) H Red Blood Count 4.07 M/UL (4.20-5.40) L Hemoglobin 9.6 G/DL (12.0-16.0) L Hematocrit 30.6 % (37.0-47.0) L Mean Corpuscular Volume 75 FL (80-99) L Mean Corpuscular Hemoglobin 23.7 PG (27.0-31.0) L Mean Corpuscular Hemoglobin Concent 31.4 G/DL (32.0-36.0) L Red Cell Distribution Width 16.3 % (11.6-14.8) H Platelet Count 471 K/UL (150-450) H Mean Platelet Volume 7.5 FL (6.5-10.1) Neutrophils (%) (Auto) 82.6 % (45.0-75.0) H Lymphocytes (%) (Auto) 10.8 % (20.0-45.0) L Monocytes (%) (Auto) 5.1 % (1.0-10.0) Eosinophils (%) (Auto) 0.9 % (0.0-3.0) Basophils (%) (Auto) 0.6 % (0.0-2.0) Sodium Level 140 MMOL/L (136-145) Potassium Level 3.5 MMOL/L (3.5-5.1) Chloride Level 106 MMOL/L (98-107) Carbon Dioxide Level 25 MMOL/L (21-32) Anion Gap 9 mmol/L (5-15) Blood Urea Nitrogen 19 mg/dL (7-18) H Creatinine 0.7 MG/DL (0.55-1.30) Estimat Glomerular Filtration Rate mL/min (>60) Glucose Level 177 MG/DL (74-106) H Calcium Level 8.6 MG/DL (8.5-10.1) Total Bilirubin 0.3 MG/DL (0.2-1.0) Aspartate Amino Transf (AST/SGOT) 12 U/L (15-37) L Alanine Aminotransferase (ALT/SGPT) 30 U/L (12-78) Alkaline Phosphatase 84 U/L (46-116) Total Protein 6.6 G/DL (6.4-8.2) Albumin 2.2 G/DL (3.4-5.0) L Globulin 4.4 g/dL Albumin/Globulin Ratio 0.5 (1.0-2.7) L Current Medications Medications (Trade) Dose Ordered Sig/Adrian Route PRN Reason Start Time Stop Time Status Last Admin Dose Admin Acetaminophen (Tylenol) 650 mg Q6H PRN GT Mild Pain/Temp > 100.5 04/06/19 21:00 05/05/19 20:59 Albuterol/ Ipratropium (Albuterol/ Ipratropium) 3 ml Q4H PRN HHN Shortness of Breath 04/06/19 22:00 04/10/19 17:59 Atorvastatin Calcium (Lipitor) 10 mg BEDTIME GT 04/06/19 21:00 05/06/19 20:59 04/07/19 20:42 Brimonidine Tartrate (Alphagan) 1 drop TID RIGHT EYE 04/07/19 09:00 05/06/19 08:59 04/08/19 09:27 Diltiazem HCl (Cardizem) 30 mg EVERY 8 HOURS GT 04/06/19 22:00 05/05/19 21:59 04/08/19 05:30 Famotidine (Pepcid) 20 mg Q12HR GT 04/06/19 21:00 05/06/19 08:59 04/08/19 09:27 Heparin Sodium (Porcine) (Heparin 5000 units/ml) 5,000 units EVERY 12 HOURS SUBQ 04/06/19 21:00 05/06/19 08:59 Iopamidol (Isovue-370 150ml) 150 ml NOW PRN INJ Radiology Procedure 04/07/19 15:30 04/08/19 15:28 Piperacillin Sod/ Tazobactam Sod 3.375 gm/Sodium Chloride 110 ml @ 27.5 mls/hr EVERY 8 HOURS IVPB 04/06/19 22:00 04/13/19 05:59 04/08/19 05:29 Timolol Maleate (Timoptic 0.25% Op Soln) 1 drop BID RIGHT EYE 04/07/19 09:00 05/06/19 08:59 04/08/19 09:28 Billy Martino MD Apr 08, 2019 10:55
--- NOTE | 2019-04-08 11:07 | NUR ---
RD ASSESSMENT & RECOMMENDATIONS SEE CARE ACTIVITY FOR COMPLETE ASSESSMENT DAILY ESTIMATED NEEDS: Needs based on Pulmonary, wound/ 69kg 25-30 kcals/kg 9574-3271 total kcals 1.25-1.5 g protein/kg 86-103 g total protein 25-30 mL/kg 6033-8031 total fluid mLs NUTRITION DIAGNOSIS: * Swallowing difficulty R/T dysphagia as evidenced by PEG dep. * Increased kcal/prot needs R/T wound healing as evidenced by pt admitted w/ lt foot wound, refer to W[facility] eval. CURRENT TF: Osmolite 1.5 @70 ml ENTERAL NUTRITION RECOMMENDATIONS: Osmolite 1.5 @ 55ml/hr x 24 hrs + Prosource 1pkt QD to provide 1320ml, 1980kcal, 83g + 11g prot, 1005ml free water * Rec to LOWER Osmolite 1.5 to goal of 55ml/hr x24 hrs * Add Prosource 1pkt daily to meet protein needs * HOB over 30 degrees/ water flush per MD ADDITIONAL RECOMMENDATIONS: * Calibrated bedscale wt for accurate CBW (per SNF record, [id number] on 03/15/19, ht=68") * Resume TF as medically appropriate * Wound healing: Add Vit C 250mg QD + Toni 1pkt BID * Monitor lytes, replete as needed * Trend blood glucose / need for carb control formula.
[2019-04-08 12:00] VITALS: BP 131/82
--- NOTE | 2019-04-08 12:06 | Surgery Progress Note ---
Surgery Progress Note Subjective Additional Comments low grade fever t max 99.5 leukocytosis at 12k now exam unchanged. labs noted dressings changed Objective Last 24 Hour Vital Signs Date Time Temp Pulse Resp B/P (MAP) Pulse Ox O2 Delivery O2 Flow Rate FiO2 04/08/19 09:00 Nasal Cannula 2.0 04/08/19 08:00 106 04/08/19 08:00 98.2 102 20 134/87 (103) 97 04/08/19 05:30 106 136/85 04/08/19 04:00 102 04/08/19 04:00 98.6 106 18 136/85 (102) 98 04/08/19 00:00 99.5 106 18 129/80 (96) 99 04/08/19 00:00 95 04/07/19 21:00 Nasal Cannula 2.0 04/07/19 20:42 103 135/92 04/07/19 20:00 97.6 103 18 135/92 (106) 97 04/07/19 20:00 95 Nasal Cannula 2.0 28 04/07/19 20:00 101 04/07/19 16:00 98 04/07/19 16:00 97.6 97 19 131/81 (98) 96 04/07/19 13:24 97 130/76 I&O Intake and Output 04/07/19 04/08/19 19:00 07:00 Intake Total 360 ml 1080 ml Output Total 750 ml Balance -390 ml 1080 ml Intake Free Water 220 ml 240 ml Tube Feeding 140 ml 840 ml Output Urine Total 750 ml # Voids 1 1 # Bowel Movements 1 1 Dressing: saturated Wound: clean Cardiovascular: RSR Respiratory: clear Abdomen: present bowel sounds Extremities: pulses, other Laboratory Tests Test 04/08/19 07:00 White Blood Count 12.1 K/UL (4.8-10.8) H Red Blood Count 4.07 M/UL (4.20-5.40) L Hemoglobin 9.6 G/DL (12.0-16.0) L Hematocrit 30.6 % (37.0-47.0) L Mean Corpuscular Volume 75 FL (80-99) L Mean Corpuscular Hemoglobin 23.7 PG (27.0-31.0) L Mean Corpuscular Hemoglobin Concent 31.4 G/DL (32.0-36.0) L Red Cell Distribution Width 16.3 % (11.6-14.8) H Platelet Count 471 K/UL (150-450) H Mean Platelet Volume 7.5 FL (6.5-10.1) Neutrophils (%) (Auto) 82.6 % (45.0-75.0) H Lymphocytes (%) (Auto) 10.8 % (20.0-45.0) L Monocytes (%) (Auto) 5.1 % (1.0-10.0) Eosinophils (%) (Auto) 0.9 % (0.0-3.0) Basophils (%) (Auto) 0.6 % (0.0-2.0) Sodium Level 140 MMOL/L (136-145) Potassium Level 3.5 MMOL/L (3.5-5.1) Chloride Level 106 MMOL/L (98-107) Carbon Dioxide Level 25 MMOL/L (21-32) Anion Gap 9 mmol/L (5-15) Blood Urea Nitrogen 19 mg/dL (7-18) H Creatinine 0.7 MG/DL (0.55-1.30) Estimat Glomerular Filtration Rate mL/min (>60) Glucose Level 177 MG/DL (74-106) H Calcium Level 8.6 MG/DL (8.5-10.1) Total Bilirubin 0.3 MG/DL (0.2-1.0) Aspartate Amino Transf (AST/SGOT) 12 U/L (15-37) L Alanine Aminotransferase (ALT/SGPT) 30 U/L (12-78) Alkaline Phosphatase 84 U/L (46-116) Total Protein 6.6 G/DL (6.4-8.2) Albumin 2.2 G/DL (3.4-5.0) L Globulin 4.4 g/dL Albumin/Globulin Ratio 0.5 (1.0-2.7) L Plan Problems: (1) Sepsis Assessment & Plan: leukocytosis anemia abnormal labs as below for care plan nutritional optimization DAILY ESTIMATED NEEDS: Needs based on Pulmonary, wound/ 69kg 25-30 kcals/kg 5516-6809 total kcals 1.25-1.5 g protein/kg 86-103 g total protein 25-30 mL/kg 0106-9465 total fluid mLs NUTRITION DIAGNOSIS: * Swallowing difficulty R/T dysphagia as evidenced by PEG dep, NPO at this time * Increased kcal/prot needs R/T wound healing as evidenced by pt admitted w/ lt foot wound, pending eval. CURRENT TF:NPO ENTERAL NUTRITION RECOMMENDATIONS: Osmolite 1.5 @ 55ml/hr x 24 hrs + Prosource 1pkt QD to provide 1320ml, 1980kcal , 83g + 11g prot, 1005ml free water * As medically appropriate, initiate TF * Rec to continue Osmolite 1.5 (TF @ SNF) * Initiate Osmoltie 1.5 @ 35ml/hr x 6 hrs, advance 10ml q 4-6 hrs as tolerated to goal rate. * Add Prosource 1pkt daily to meet protein needs * HOB over 30 degrees/ water flush per MD ADDITIONAL RECOMMENDATIONS: * Calibrated bedscale wt for accurate CBW (per SNF record, [id number] on 03/15/19, ht=68") * Resume TF as medically appropriate * Wound healing: Add Vit C 250mg QD + Toni 1pkt BID * Monitor lytes, replete as needed (2) UTI (urinary tract infection) (3) Anemia (4) Afib (5) Decubitus skin ulcer Assessment & Plan: Pt presented on admission with contractures and multiple pressure injuries. Non-blanchable erythema with fluctuance L heel and plantar aspect of L heel. Non-blanching erythema with fluctuance R heel. Non-blanching erythema without fluctuance or induration Lateral R malleolus. Non-blanching erythema without induration or fluctuance Lateral L malleolus. Non-blanching erythema without fluctuance or induration distal/lateral L foot. Necrotic wound medial/lateral L foot . Base of wound is fluctuant, oozing small amt purulent exudate. Borders and periwound are erythematous. Non-blanching erythema without induration or fluctuance Sacrum. No other skin concerns noted. Tx.Plan: Apply Moisture Barrier paste to sacrum. Cover with Optifoam drsg. Change every 3 days and prn. Apply Cavilon Skin Barrier to R lateral malleolus ,R heel and R hallux. Cover each site with Optifoam drsg. Change every 7 days and prn. Apply Cavilon Skin Barrier to L lateral malleolus , L heel ,L hallux .Cover each site with Optifoam drsg. Change every 7 days and prn. Clean Wound lateral/medial L foot with saline. Apply Therahoney. Cover with Optifoam drsg. Change Daily and prn. Reposition at least every 2hours or as tolerated. APM/NIKOLAI mattress overlay. Off-load heels with pillow. Efe Ureña Apr 08, 2019 12:06
[2019-04-08 16:00] VITALS: BP 125/85
--- NOTE | 2019-04-08 19:00 | Cardiology Progress Note ---
Assessment/Plan Assessment/Plan afib perm anemia uti contracture dementia cardizem for hr control seem fine is not on bipap now s/p prbc txhgb stabel not on anticoagualtion at this time cta neg hemodynamically stable Subjective ROS Limited/Unobtainable: Yes Objective Last 24 Hour Vital Signs Date Time Temp Pulse Resp B/P (MAP) Pulse Ox O2 Delivery O2 Flow Rate FiO2 04/08/19 16:00 97.9 100 20 125/85 (98) 98 04/08/19 16:00 99 04/08/19 15:41 98 Nasal Cannula 2.0 28 04/08/19 13:34 92 131/82 04/08/19 12:00 92 04/08/19 12:00 97.7 100 18 131/82 (98) 97 04/08/19 09:00 Nasal Cannula 2.0 04/08/19 08:00 106 04/08/19 08:00 98.2 102 20 134/87 (103) 97 04/08/19 05:30 106 136/85 04/08/19 04:00 102 04/08/19 04:00 98.6 106 18 136/85 (102) 98 04/08/19 00:00 99.5 106 18 129/80 (96) 99 04/08/19 00:00 95 04/07/19 21:00 Nasal Cannula 2.0 04/07/19 20:42 103 135/92 04/07/19 20:00 97.6 103 18 135/92 (106) 97 04/07/19 20:00 95 Nasal Cannula 2.0 28 04/07/19 20:00 101 General Appearance: no apparent distress Neck: supple Cardiovascular: irregularly irregular Respiratory/Chest: lungs clear - ant Abdomen: non tender, soft Extremities: no swelling - contracted Intake and Output 04/07/19 04/08/19 19:00 07:00 Intake Total 360 ml 1080 ml Output Total 750 ml Balance -390 ml 1080 ml Intake Free Water 220 ml 240 ml Tube Feeding 140 ml 840 ml Output Urine Total 750 ml # Voids 1 1 # Bowel Movements 1 1 Laboratory Tests Test 04/08/19 07:00 White Blood Count 12.1 K/UL (4.8-10.8) H Red Blood Count 4.07 M/UL (4.20-5.40) L Hemoglobin 9.6 G/DL (12.0-16.0) L Hematocrit 30.6 % (37.0-47.0) L Mean Corpuscular Volume 75 FL (80-99) L Mean Corpuscular Hemoglobin 23.7 PG (27.0-31.0) L Mean Corpuscular Hemoglobin Concent 31.4 G/DL (32.0-36.0) L Red Cell Distribution Width 16.3 % (11.6-14.8) H Platelet Count 471 K/UL (150-450) H Mean Platelet Volume 7.5 FL (6.5-10.1) Neutrophils (%) (Auto) 82.6 % (45.0-75.0) H Lymphocytes (%) (Auto) 10.8 % (20.0-45.0) L Monocytes (%) (Auto) 5.1 % (1.0-10.0) Eosinophils (%) (Auto) 0.9 % (0.0-3.0) Basophils (%) (Auto) 0.6 % (0.0-2.0) Sodium Level 140 MMOL/L (136-145) Potassium Level 3.5 MMOL/L (3.5-5.1) Chloride Level 106 MMOL/L (98-107) Carbon Dioxide Level 25 MMOL/L (21-32) Anion Gap 9 mmol/L (5-15) Blood Urea Nitrogen 19 mg/dL (7-18) H Creatinine 0.7 MG/DL (0.55-1.30) Estimat Glomerular Filtration Rate mL/min (>60) Glucose Level 177 MG/DL (74-106) H Calcium Level 8.6 MG/DL (8.5-10.1) Total Bilirubin 0.3 MG/DL (0.2-1.0) Aspartate Amino Transf (AST/SGOT) 12 U/L (15-37) L Alanine Aminotransferase (ALT/SGPT) 30 U/L (12-78) Alkaline Phosphatase 84 U/L (46-116) Total Protein 6.6 G/DL (6.4-8.2) Albumin 2.2 G/DL (3.4-5.0) L Globulin 4.4 g/dL Albumin/Globulin Ratio 0.5 (1.0-2.7) L Lamont Felix MD Apr 08, 2019 19:00
--- NOTE | 2019-04-08 19:20 | NUR ---
NURSE NOTES: Received pt from NAVIN Her. Pt awake, tachypneic, and nonverbal. Bed in lowest position. Call light within reach. GT Feeding running. Will continue to monitor.
--- NOTE | 2019-04-08 19:25 | NUR ---
HAND-OFF: Report given to Jeanine/RN, Patient is asleep in stable condition, Endorsed plan of care.
--- NOTE | 2019-04-08 19:35 | General Progress Note ---
Assessment/Plan Problem List: (1) Anemia ICD Codes: D64.9 - Anemia, unspecified SNOMED: 382779421 Qualifiers: Qualified Codes: D64.9 - Anemia, unspecified (2) Afib ICD Codes: I48.91 - Unspecified atrial fibrillation SNOMED: 61134928 Qualifiers: Qualified Codes: I48.91 - Unspecified atrial fibrillation (3) Sepsis ICD Codes: A41.9 - Sepsis, unspecified organism SNOMED: 28250696 Qualifiers: Qualified Codes: A41.9 - Sepsis, unspecified organism (4) UTI (urinary tract infection) ICD Codes: N39.0 - Urinary tract infection, site not specified SNOMED: 83535301 Qualifiers: Qualified Codes: N39.0 - Urinary tract infection, site not specified Assessment/Plan: abxs rate control cont TF Follow labs wound care Subjective Allergies: Coded Allergies: No Known Allergies (Unverified , 04/05/19) Subjective In NAD Objective Last 24 Hour Vital Signs Date Time Temp Pulse Resp B/P (MAP) Pulse Ox O2 Delivery O2 Flow Rate FiO2 04/08/19 16:00 97.9 100 20 125/85 (98) 98 04/08/19 16:00 99 04/08/19 15:41 98 Nasal Cannula 2.0 28 04/08/19 13:34 92 131/82 04/08/19 12:00 92 04/08/19 12:00 97.7 100 18 131/82 (98) 97 04/08/19 09:00 Nasal Cannula 2.0 04/08/19 08:00 106 04/08/19 08:00 98.2 102 20 134/87 (103) 97 04/08/19 05:30 106 136/85 04/08/19 04:00 102 04/08/19 04:00 98.6 106 18 136/85 (102) 98 04/08/19 00:00 99.5 106 18 129/80 (96) 99 04/08/19 00:00 95 04/07/19 21:00 Nasal Cannula 2.0 04/07/19 20:42 103 135/92 04/07/19 20:00 97.6 103 18 135/92 (106) 97 04/07/19 20:00 95 Nasal Cannula 2.0 28 04/07/19 20:00 101 Intake and Output 04/07/19 04/08/19 19:00 07:00 Intake Total 360 ml 1080 ml Output Total 750 ml Balance -390 ml 1080 ml Intake Free Water 220 ml 240 ml Tube Feeding 140 ml 840 ml Output Urine Total 750 ml # Voids 1 1 # Bowel Movements 1 1 Laboratory Tests 04/08/19 07:00: White Blood Count 12.1H, Red Blood Count 4.07L, Hemoglobin 9.6L, Hematocrit 30.6L, Mean Corpuscular Volume 75L, Mean Corpuscular Hemoglobin 23.7L, Mean Corpuscular Hemoglobin Concent 31.4L, Red Cell Distribution Width 16.3H, Platelet Count 471H, Mean Platelet Volume 7.5, Neutrophils (%) (Auto) 82.6H, Lymphocytes (%) (Auto) 10.8L, Monocytes (%) (Auto) 5.1, Eosinophils (%) (Auto) 0.9, Basophils (%) (Auto) 0.6, Sodium Level 140, Potassium Level 3.5, Chloride Level 106, Carbon Dioxide Level 25, Anion Gap 9, Blood Urea Nitrogen 19H, Creatinine 0.7, Estimat Glomerular Filtration Rate , Glucose Level 177H, Calcium Level 8.6, Total Bilirubin 0.3, Aspartate Amino Transf (AST/SGOT) 12L, Alanine Aminotransferase (ALT/SGPT) 30, Alkaline Phosphatase 84, Total Protein 6.6, Albumin 2.2L, Globulin 4.4, Albumin/Globulin Ratio 0.5L Height (Feet): 5 Height (Inches): 4.00 Weight (Pounds): 180 Cardiovascular: normal rate Respiratory/Chest: lungs clear Edema: no edema noted Kennedy Reddy MD Apr 08, 2019 19:35
[2019-04-08 20:00] VITALS: BP 154/93
--- NOTE | 2019-04-08 23:36 | NUR ---
NURSE NOTES: Pts Gtube leaking melena. Stopped GT feeding and replaced dressing. Called and left a message with Dr. Kennedy Martino and Dr. Jc. Dr. 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 Dr. Jc is yet to respond. Will continue to monitor.
[2019-04-09] VITALS (7 sets, daily range): BP systolic 123–148; BP diastolic 74–100
--- NOTE | 2019-04-09 03:00 | NUR ---
NURSE NOTES: Received report from NAVIN Solorzano. Patient in bed asleep hob 45deg showing no signs of acute distress. Non verbal AOx0. Respiration even and non labored on 2L NC O2. No sob noted. GTube intact, noted to have presence of stool when aspirated, MD aware. GT feeding on hold. IV on right hand 20g sl patent and intact. Call light within reach, bed in lowest position, wheels locked and alarm on. Will continue to monitor.
[2019-04-09] MEDS: dilTIAZem HCl 30mg tab GT SCH ×3 (05:51→20:43)
[2019-04-09] MEDS: Piperacillin/Tazobactam 3.375 GM in NS 110 ML IVPB SCH (06:22)
--- NOTE | 2019-04-09 07:35 | NUR ---
NURSE NOTES: Received report from NAVIN Nguyen. Patient in bed asleep hob 45deg. Patient shows labored breath of 30 RR of mouth breathing. Non verbal. Patient react to tactile touch. AOx0. Respiration even and non labored on 2L NC O2. Patient on associate principal. GTube intact, noted to have presence of stool when aspirated, MD aware. GT feeding on hold. IV on right hand 20g sl patent and intact. Call light within reach, bed in lowest position, wheels locked and alarm on. Will continue to monitor.
--- NOTE | 2019-04-09 07:39 | NUR ---
HAND-OFF: Report given to NAVIN Phillip.
--- NOTE | 2019-04-09 08:15 | NUR ---
NURSE NOTES: Patient was repositioned. Patient breathing is 24 RR. Patient is noted mouth breathing and unlabored. Patient is on 2L NC.
[2019-04-09] MEDS: Heparin 5000 units/ml inj SUBQ SCH ×2 (08:49→20:44)
[2019-04-09] MEDS: Brimonidine 0.2% Opth Sol RIGHT EYE SCH ×3 (09:41→19:30)
[2019-04-09] MEDS: Timoptic 0.25% Op Soln 2.5ml RIGHT EYE SCH ×2 (09:41→19:30)
--- NOTE | 2019-04-09 10:10 | Infectious Diseases Prog Note ---
Assessment/Plan Assessment/Plan IMPRESSION: Sepsis or systemic inflammatory response Pyuria Hypoxemia that is resolved. Lactic acidosis, atrial fibrillation with rapid ventricular rate. 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 RECOMMENDATIONS: Change Zosyn to Levaquin will f/u Abdominal US Subjective ROS Limited/Unobtainable: Yes Constitutional: Denies: fever Allergies: Coded Allergies: No Known Allergies (Unverified , 04/05/19) Objective Vital Signs Last 24 Hour Vital Signs Date Time Temp Pulse Resp B/P (MAP) Pulse Ox O2 Delivery O2 Flow Rate FiO2 04/09/19 08:00 98.6 76 18 148/76 (100) 98 04/09/19 05:51 110 138/100 04/09/19 04:00 97.3 112 17 138/100 (113) 98 04/09/19 04:00 110 04/09/19 00:31 130 04/09/19 00:00 109 04/09/19 00:00 97.3 112 42 139/77 (97) 97 04/08/19 21:09 126 154/93 04/08/19 21:00 Nasal Cannula 2.0 04/08/19 20:00 117 04/08/19 20:00 98.2 126 19 154/93 (113) 97 04/08/19 19:35 97 Nasal Cannula 2.0 28 04/08/19 16:00 97.9 100 20 125/85 (98) 98 04/08/19 16:00 99 04/08/19 15:41 98 Nasal Cannula 2.0 28 04/08/19 13:34 92 131/82 04/08/19 12:00 92 04/08/19 12:00 97.7 100 18 131/82 (98) 97 Height (Feet): 5 Height (Inches): 4.00 Weight (Pounds): 180 General Appearance: no acute distress Respiratory/Chest: lungs clear Cardiovascular: normal rate Abdomen: soft, non tender, other - GT in place Neurologic/Psychiatric: responsive, aphasia Laboratory Tests Test 04/08/19 23:00 Stool Occult Blood Pending Current Medications Medications (Trade) Dose Ordered Sig/Adrian Route PRN Reason Start Time Stop Time Status Last Admin Dose Admin Acetaminophen (Tylenol) 650 mg Q6H PRN GT Mild Pain/Temp > 100.5 04/06/19 21:00 05/05/19 20:59 Albuterol/ Ipratropium (Albuterol/ Ipratropium) 3 ml Q4H PRN HHN Shortness of Breath 04/06/19 22:00 04/10/19 17:59 Atorvastatin Calcium (Lipitor) 10 mg BEDTIME GT 04/06/19 21:00 05/06/19 20:59 04/08/19 21:09 Brimonidine Tartrate (Alphagan) 1 drop TID RIGHT EYE 04/07/19 09:00 05/06/19 08:59 04/09/19 09:41 Diltiazem HCl (Cardizem) 30 mg EVERY 8 HOURS GT 04/06/19 22:00 05/05/19 21:59 04/08/19 21:09 Famotidine (Pepcid) 20 mg Q12HR GT 04/06/19 21:00 05/06/19 08:59 04/08/19 21:09 Heparin Sodium (Porcine) (Heparin 5000 units/ml) 5,000 units EVERY 12 HOURS SUBQ 04/06/19 21:00 05/06/19 08:59 Piperacillin Sod/ Tazobactam Sod 3.375 gm/Sodium Chloride 110 ml @ 27.5 mls/hr EVERY 8 HOURS IVPB 04/06/19 22:00 04/13/19 05:59 04/09/19 06:22 Timolol Maleate (Timoptic 0.25% Op Soln) 1 drop BID RIGHT EYE 04/07/19 09:00 05/06/19 08:59 04/09/19 09:41 Billy Martino MD Apr 09, 2019 10:10
[2019-04-09] MEDS ORDERED: Levofloxacin 500mg tab GT SCH (10:15)
--- NOTE | 2019-04-09 11:15 | Diagnostic Imaging Report ---
APPROVED REPORT CPT Code: 90807 Present Symptoms Comments: Dyspnea BILATERAL: Imaging reveals a patent deep venous system bilaterally. There is no evidence of thrombus within the femoral, popliteal or tibial segments. The greater saphenous veins are also within normal limits. Doppler indicates normal spontaneous flow within these segments.
--- NOTE | 2019-04-09 11:52 | Pulmonology Progress Note ---
Assessment/Plan Problems: (1) Sepsis (2) UTI (urinary tract infection) (3) Anemia (4) Afib Assessment/Plan ASSESSMENT: The patient is an 83-year-old female, detention patient with dementia, nonverbal at baseline, dysphagia status post G-tube, history of GI bleed, hypertension, hyperlipidemia, atrial fibrillation brought in for acute on chronic anemia and placed on BiPAP for respiratory failure and concern for possible sepsis. PROBLEM LIST: 1. Acute hypoxemic respiratory failure - IMPROVED 2. Systemic inflammatory response syndrome - HEMODYNAMICALLY STABLE 3. Atrial fibrillation initially with RVR, now rate controlled. 4. Acute on chronic anemia. 5. History of GI bleed. 6. Dysphagia, status post G-tube. 7. Dementia. 8. Hypertension. 9. Hyperlipidemia. 10. Hypothyroidism. 11. 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 -PRN DuoNebs. -Levaquin per ID -F/U Abx US -Follow up Cardiology recommendations. -Monitor volumes and renal function -TF's as tolerated -DVT prophylaxis, heparin subcutaneous. -Monitor hemoglobin and hematocrit, transfuse as needed. F/U FOBT -DNAR. Subjective Allergies: Coded Allergies: No Known Allergies (Unverified , 04/05/19) Subjective AFVSS in rate controlled AF though was RVR early this am Inc RR this am better now No cough no SOB no FC Objective Last 24 Hour Vital Signs Date Time Temp Pulse Resp B/P (MAP) Pulse Ox O2 Delivery O2 Flow Rate FiO2 04/09/19 09:00 Nasal Cannula 2.0 04/09/19 08:00 98.6 76 18 148/76 (100) 98 04/09/19 07:46 105 04/09/19 05:51 110 138/100 04/09/19 04:00 97.3 112 17 138/100 (113) 98 04/09/19 04:00 110 04/09/19 00:31 130 04/09/19 00:00 109 04/09/19 00:00 97.3 112 42 139/77 (97) 97 04/08/19 21:09 126 154/93 04/08/19 21:00 Nasal Cannula 2.0 04/08/19 20:00 117 04/08/19 20:00 98.2 126 19 154/93 (113) 97 04/08/19 19:35 97 Nasal Cannula 2.0 28 04/08/19 16:00 97.9 100 20 125/85 (98) 98 04/08/19 16:00 99 04/08/19 15:41 98 Nasal Cannula 2.0 28 04/08/19 13:34 92 131/82 04/08/19 12:00 92 04/08/19 12:00 97.7 100 18 131/82 (98) 97 Intake and Output 04/08/19 04/09/19 19:00 07:00 Intake Total 70 ml 70 ml Balance 70 ml 70 ml Tube Feeding 70 ml 70 ml # Voids 2 1 General Appearance: no acute distress, cachetic HEENT: normocephalic, atraumatic Respiratory/Chest: chest wall non-tender, lungs clear, normal breath sounds, no respiratory distress, no accessory muscle use Cardiovascular: irregularly irregular Abdomen: normal bowel sounds, soft, non tender, no organomegaly, non distended , no mass, other - GT CDI Extremities: no cyanosis, no clubbing, no edema, other - contractures Laboratory Tests 04/08/19 23:00: Stool Occult Blood [Pending] Current Medications Medications (Trade) Dose Ordered Sig/Adrian Route PRN Reason Start Time Stop Time Status Last Admin Dose Admin Acetaminophen (Tylenol) 650 mg Q6H PRN GT Mild Pain/Temp > 100.5 04/06/19 21:00 05/05/19 20:59 Albuterol/ Ipratropium (Albuterol/ Ipratropium) 3 ml Q4H PRN HHN Shortness of Breath 04/06/19 22:00 04/10/19 17:59 Atorvastatin Calcium (Lipitor) 10 mg BEDTIME GT 04/06/19 21:00 05/06/19 20:59 04/08/19 21:09 Brimonidine Tartrate (Alphagan) 1 drop TID RIGHT EYE 04/07/19 09:00 05/06/19 08:59 04/09/19 09:41 Diltiazem HCl (Cardizem) 30 mg EVERY 8 HOURS GT 04/06/19 22:00 05/05/19 21:59 04/08/19 21:09 Famotidine (Pepcid) 20 mg Q12HR GT 04/06/19 21:00 05/06/19 08:59 04/08/19 21:09 Heparin Sodium (Porcine) (Heparin 5000 units/ml) 5,000 units EVERY 12 HOURS SUBQ 04/06/19 21:00 05/06/19 08:59 Levofloxacin (Levaquin) 250 mg DAILY GT 04/10/19 09:00 04/17/19 08:59 Timolol Maleate (Timoptic 0.25% Op Soln) 1 drop BID RIGHT EYE 04/07/19 09:00 05/06/19 08:59 04/09/19 09:41 Lito Jc MD Apr 09, 2019 11:52
--- NOTE | 2019-04-09 12:56 | NUR ---
[employer] EXPERIMENTAL SI: RAPID AFIB T. 97.5 HR 102 RR 20 B/P 148/76 2L NC H/H 9.6/30.2 STOOL OCCULT + IS: CARDIZEM PO LEVAQUIN PO PEPCID PO TELE STATUS
--- NOTE | 2019-04-09 13:29 | Surgery Progress Note ---
Surgery Progress Note Subjective Additional Comments leukocytosis anemia exam unchanged comfortable overall Objective Last 24 Hour Vital Signs Date Time Temp Pulse Resp B/P (MAP) Pulse Ox O2 Delivery O2 Flow Rate FiO2 04/09/19 12:00 97.5 70 20 137/74 (95) 98 04/09/19 12:00 96 Nasal Cannula 2.0 28 04/09/19 11:43 102 04/09/19 09:00 Nasal Cannula 2.0 04/09/19 08:00 98.6 76 18 148/76 (100) 98 04/09/19 07:46 105 04/09/19 05:51 110 138/100 04/09/19 04:00 97.3 112 17 138/100 (113) 98 04/09/19 04:00 110 04/09/19 00:31 130 04/09/19 00:00 109 04/09/19 00:00 97.3 112 42 139/77 (97) 97 04/08/19 21:09 126 154/93 04/08/19 21:00 Nasal Cannula 2.0 04/08/19 20:00 117 04/08/19 20:00 98.2 126 19 154/93 (113) 97 04/08/19 19:35 97 Nasal Cannula 2.0 28 04/08/19 16:00 97.9 100 20 125/85 (98) 98 04/08/19 16:00 99 04/08/19 15:41 98 Nasal Cannula 2.0 28 04/08/19 13:34 92 131/82 I&O Intake and Output 04/08/19 04/09/19 19:00 07:00 Intake Total 70 ml 70 ml Balance 70 ml 70 ml Tube Feeding 70 ml 70 ml # Voids 2 1 Dressing: dry Wound: clean Cardiovascular: RSR Respiratory: clear Abdomen: soft, flat, non-tender, present bowel sounds, other Extremities: no cyanosis, other Laboratory Tests Test 04/08/19 23:00 Stool Occult Blood Positive (NEGATIVE) Plan Problems: (1) Sepsis Assessment & Plan: leukocytosis anemia abnormal labs as below for care plan nutritional optimization DAILY ESTIMATED NEEDS: Needs based on Pulmonary, wound/ 69kg 25-30 kcals/kg 3329-3863 total kcals 1.25-1.5 g protein/kg 86-103 g total protein 25-30 mL/kg 1174-1538 total fluid mLs NUTRITION DIAGNOSIS: * Swallowing difficulty R/T dysphagia as evidenced by PEG dep, NPO at this time * Increased kcal/prot needs R/T wound healing as evidenced by pt admitted w/ lt foot wound, pending eval. CURRENT TF:NPO ENTERAL NUTRITION RECOMMENDATIONS: Osmolite 1.5 @ 55ml/hr x 24 hrs + Prosource 1pkt QD to provide 1320ml, 1980kcal , 83g + 11g prot, 1005ml free water * As medically appropriate, initiate TF * Rec to continue Osmolite 1.5 (TF @ SNF) * Initiate Osmoltie 1.5 @ 35ml/hr x 6 hrs, advance 10ml q 4-6 hrs as tolerated to goal rate. * Add Prosource 1pkt daily to meet protein needs * HOB over 30 degrees/ water flush per MD ADDITIONAL RECOMMENDATIONS: * Calibrated bedscale wt for accurate CBW (per SNF record, sf=[id number] on 03/15/19, ht=68") * Resume TF as medically appropriate * Wound healing: Add Vit C 250mg QD + Toni 1pkt BID * Monitor lytes, replete as needed (2) UTI (urinary tract infection) (3) Anemia (4) Afib (5) Decubitus skin ulcer Assessment & Plan: Pt presented on admission with contractures and multiple pressure injuries. Non-blanchable erythema with fluctuance L heel and plantar aspect of L heel. Non-blanching erythema with fluctuance R heel. Non-blanching erythema without fluctuance or induration Lateral R malleolus. Non-blanching erythema without induration or fluctuance Lateral L malleolus. Non-blanching erythema without fluctuance or induration distal/lateral L foot. Necrotic wound medial/lateral L foot . Base of wound is fluctuant, oozing small amt purulent exudate. Borders and periwound are erythematous. Non-blanching erythema without induration or fluctuance Sacrum. No other skin concerns noted. Tx.Plan: Apply Moisture Barrier paste to sacrum. Cover with Optifoam drsg. Change every 3 days and prn. Apply Cavilon Skin Barrier to R lateral malleolus ,R heel and R hallux. Cover each site with Optifoam drsg. Change every 7 days and prn. Apply Cavilon Skin Barrier to L lateral malleolus , L heel ,L hallux .Cover each site with Optifoam drsg. Change every 7 days and prn. Clean Wound lateral/medial L foot with saline. Apply Therahoney. Cover with Optifoam drsg. Change Daily and prn. Reposition at least every 2hours or as tolerated. APM/NIKOLAI mattress overlay. Off-load heels with pillow. Efe Ureña Apr 09, 2019 13:29
--- NOTE | 2019-04-09 14:18 | Diagnostic Imaging Report ---
Indication: Abdominal pain Technique: Grayscale and duplex Doppler imaging of the abdomen performed. Comparison: None Findings: The liver is enlarged measuring about 20 cm. Doppler interrogation of the main portal vein shows patency with hepatopedal, monophasic flow. There is no biliary ductal dilatation identified. Gallbladder is notable for sludge and multiple stones with thickened wall. CBD is 10 mm in diameter. There is intrahepatic biliary ductal dilatation. There demonstrated part of the pancreas, aorta and IVC show no definite abnormalities. 1.9 cm cyst noted on the left kidney. There is no hydronephrosis. There are trace bilateral pleural effusions. IMPRESSION: Hepatomegaly. Cholelithiasis with wall thickening. Suspect cholecystitis. Correlate clinically. Dilated biliary ducts. Consider further evaluation with MRCP. Left renal cyst
--- NOTE | 2019-04-09 15:14 | General Progress Note ---
Assessment/Plan Problem List: (1) Anemia ICD Codes: D64.9 - Anemia, unspecified SNOMED: 172636518 Qualifiers: Qualified Codes: D64.9 - Anemia, unspecified (2) Afib ICD Codes: I48.91 - Unspecified atrial fibrillation SNOMED: 60484072 Qualifiers: Qualified Codes: I48.91 - Unspecified atrial fibrillation (3) Sepsis ICD Codes: A41.9 - Sepsis, unspecified organism SNOMED: 09719721 Qualifiers: Qualified Codes: A41.9 - Sepsis, unspecified organism (4) UTI (urinary tract infection) ICD Codes: N39.0 - Urinary tract infection, site not specified SNOMED: 85539851 Qualifiers: Qualified Codes: N39.0 - Urinary tract infection, site not specified Assessment/Plan: Dc today Discussed with RN Subjective Allergies: Coded Allergies: No Known Allergies (Unverified , 04/05/19) Subjective In NAD Objective Last 24 Hour Vital Signs Date Time Temp Pulse Resp B/P (MAP) Pulse Ox O2 Delivery O2 Flow Rate FiO2 04/09/19 14:49 70 137/74 04/09/19 12:00 97.5 70 20 137/74 (95) 98 04/09/19 12:00 96 Nasal Cannula 2.0 28 04/09/19 11:43 102 04/09/19 09:00 Nasal Cannula 2.0 04/09/19 08:00 98.6 76 18 148/76 (100) 98 04/09/19 07:46 105 04/09/19 05:51 110 138/100 04/09/19 04:00 97.3 112 17 138/100 (113) 98 04/09/19 04:00 110 04/09/19 00:31 130 04/09/19 00:00 109 04/09/19 00:00 97.3 112 42 139/77 (97) 97 04/08/19 21:09 126 154/93 04/08/19 21:00 Nasal Cannula 2.0 04/08/19 20:00 117 04/08/19 20:00 98.2 126 19 154/93 (113) 97 04/08/19 19:35 97 Nasal Cannula 2.0 28 04/08/19 16:00 97.9 100 20 125/85 (98) 98 04/08/19 16:00 99 04/08/19 15:41 98 Nasal Cannula 2.0 28 Intake and Output 04/08/19 04/09/19 19:00 07:00 Intake Total 70 ml 70 ml Balance 70 ml 70 ml Tube Feeding 70 ml 70 ml # Voids 2 1 Laboratory Tests 04/08/19 23:00: Stool Occult Blood Positive Height (Feet): 5 Height (Inches): 4.00 Weight (Pounds): 180 Cardiovascular: normal rate Respiratory/Chest: lungs clear Edema: no edema noted Generalized Kennedy Martino MD Apr 09, 2019 15:14
--- NOTE | 2019-04-09 16:13 | NUR ---
DISCHARGE PLANNING DISCHARGE ORDER NOTED Patient has been accepted to; [facility] [address] [place] [address] Bed:-A [facility] [phone] for Nurse to Nurse report [facility] ETA for transportation: 18:30
--- NOTE | 2019-04-09 16:42 | NUR ---
NURSE NOTES: Gave report to NAVIN Murray of [facility] . Notified Yara, [id number] , of patient going to [facility].
--- NOTE | 2019-04-09 19:35 | NUR ---
HAND-OFF: Report given to NAVIN Solorzano. Endorsed about WCP uploaded. The left foot lateral has blister that popped. Endorsed so it will be told to [facility].
--- NOTE | 2019-04-09 19:53 | NUR ---
NURSE NOTES: Received pt from NAVIN Phillip. Pt awake but nonverbal. Bed in lowest position. Call light within reach. Awaiting [facility] to pick pt up for D/C. Will continue to monitor.
--- NOTE | 2019-04-09 22:42 | NUR ---
HAND-OFF: Report given to [facility] personnel. IV site, tele box, and armband removed. Pt remained stable. Will notify [facility] post acute care facility..
--- NOTE | 2019-04-11 19:40 | Discharge Summary ---
Discharge Summary Discharge Summary _ DATE OF ADMISSION: 04/05/2019 DATE OF DISCHARGE: 04/09/2019 DISCHARGED BY: Dr. Kennedy Martino CONSULTANTS: Dr. Efe Jc BRIEF HOSPITAL COURSE: Patient is an 84-year-old [place] female, who resides in [facility]. The patient is nonverbal, bedridden, with contractures, she was found to be very anemic with a hemoglobin of 7.2. She was sent to the emergency room for further evaluation and treatment. She has history of coffee-ground fluid coming out from the G-tube in the past. She was found to have colocutaneous fistula. She has history of atrial fibrillation, subdural hematoma, and dementia. Patient is DNR. On evaluation at the ED, blood pressure was 119/72, heart rate 115, O2 saturation 96% on 2 L, she was afebrile. Blood work showed WBC of 10.6, hemoglobin 7.1, hematocrit 23.8. There were no electrolyte abnormalities. INR 1.1. Urinalyses showed +3 esterase, 2-4 urine RBC, 5-10 urine WBC, negative nitrite. EKG showed atrial fibrillation with RVR. ABG showed pH 7.47, 33, 106 , 24, 97. She was started on BiPAP. Chest x-ray did not show any acute process. Tachycardia resolved with IV fluids. She was given IV antibiotics for UTI. Blood transfusion was ordered. She was then admitted for evaluation of anemia, atrial fibrillation with RVR and UTI. She was admitted to monitored floor. She was initially placed on n.p.o. and was given IV fluid. She received 2 units packed RBC blood transfusion. She was started on Cardizem for heart rate control. She was given nebulizer treatment. She was taken off BiPAP support and was placed on PRN. Troponin was negative. Digoxin level 0.8. Echocardiogram showed EF 55 to 60%. She was started on tube feeding. She was saturating well on nasal cannula. Venous duplex was negative for acute DVT. She was continued on Zosyn pending culture results. Patient was noted to have multiple decubitus ulcers on admission. Surgeon was called to evaluate and assist with care. Patient has non-blanchable erythema with fluctuance on both the right and left heel. Nonblanching erythema without fluctuance or induration on bilateral lateral right and left malleolus. Nonblanching erythema without fluctuance or induration on the distal lateral left foot. Necrotic wound on the medial/lateral left foot. Nonblanching erythema without induration or fluctuance in the sacrum. She was given wound care. She was placed on APM/NIKOLAI mattress overlay with frequent repositioning and offloading. D-dimer was 3.8. CTA of the chest with contrast was negative for evidence of pulmonary embolus, aortic dissection or aneurysm. Upper abdomen was notable for distended gallbladder with suspected gallstones. Abdominal ultrasound showed cholelithiasis with wall thickening. Dilated biliary ducts. Blood culture did not isolate any growth. Zosyn was changed to Levaquin. She was eventually discharged back to SNF. FINAL DIAGNOSES: Sepsis/SIRS Acute hypoxemic respiratory failure, improved A. fib with RVR Acute on chronic anemia requiring blood transfusion Urinary tract infection Multiple wounds, present on admission Dysphagia, status post G-tube Dementia Hypertension Hyperlipidemia Hypothyroidism Elevated d-dimer status post negative duplex and CTA History of colocutaneous fistula DISPOSITION: Patient was discharged to a SNF. DISCHARGE MEDICATIONS: Refer to Discharge Medication List. I have been assigned to complete a discharge summary on this account, I was not involved with the patient's management.--IZZY Clarke Jacqueline Robles NP Apr 11, 2019 19:40
== END 2019-04-09 22:30 | DRG 871 ==
LOC: EDBD 11:40 → EDBEDREQ 12:38 → EDBEDREQSVC 12:39 → EDBEDREQ 12:39 → EMR 14:02 → 2E 14:22 → EDBEDREQ 16:18 → 2W 18:53 → 2E 04-06 20:30
PROC: 30233N1 Transfusion of Nonautologous Red Blood Cells into Peripheral Vein, Percutaneous Approach (ICD-10-PCS; principal; 2019-04-05)
DX: A41.9 Sepsis, unspecified organism (principal); J96.01 Acute respiratory failure with hypoxia; N39.0 Urinary tract infection, site not specified; Z43.1 Encounter for attention to gastrostomy; R47.01 Aphasia; I48.91 Unspecified atrial fibrillation; D64.9 Anemia, unspecified; F03.90 Unspecified dementia, unspecified severity, without behavioral disturbance, psychotic disturbance, mood disturbance, and anxiety; Z66 Do not resuscitate; R13.10 Dysphagia, unspecified; I10 Essential (primary) hypertension; E78.5 Hyperlipidemia, unspecified; K80.20 Calculus of gallbladder without cholecystitis without obstruction; M24.50 Contracture, unspecified joint; L89.899 Pressure ulcer of other site, unspecified stage; I27.20 Pulmonary hypertension, unspecified; Z22.322 Carrier or suspected carrier of Methicillin resistant Staphylococcus aureus
CPT/HCPCS: 36415; 36600; 71045; 71275; 76700; 80048; 80053; 80162; 81003; 82270; 82803; 83605; 84484; 85007; 85025; 85379; 85610; 85730; 86850; 86900; 86901; 86920; 87040; 87081; 93005; 93306; 93970; 94660; 94664; 96365; 99285; J7620